=== PATIENT | female | born 1975 | race African-American/Black ===

== ENCOUNTER 2024-05-06 10:33 | Outpatient (CLI) | payer BC, SELFPAY ==
--- NOTE | ~2024-05-06 | XR_ITS ---
XR knee LT min 4V 05/06/2024 10:57 Indication: Left knee pain Procedure: 4 views left knee Comparison: No prior studies for comparison. Findings: Mild osteoarthritis. No fracture, subluxation or dislocation. No significant joint effusion . No foreign bodies. Impression: 1: Mild osteoarthritis of the left knee. Reviewed, dictated and finalized at location A. Impression: 1: Mild osteoarthritis of the left knee.
--- NOTE | ~2024-05-06 | XR_ITS ---
XR knee RT min 4V 05/06/2024 10:57 Indication: Right knee pain Procedure: 4 views right knee Comparison: No prior studies for comparison. Findings: Mild osteoarthritis of the right knee. No fracture, subluxation or dislocation. No signific ant joint effusion. No foreign bodies. Impression: 1: Mild osteoarthritis of the right knee. Reviewed, dictated and finalized at location A. Impression: 1: Mild osteoarthritis of the right knee.
== END 2024-05-06 10:34 | disposition home or self-care (01) ==
LOC: ANHIMG 10:36
PROVIDERS: Visit Provider Orthopaedic Surgery
DX: M22.41 Chondromalacia patellae, right knee (principal); M17.0 Bilateral primary osteoarthritis of knee
CPT/HCPCS: 73564

== ENCOUNTER 2025-02-17 14:22 | Outpatient (CLI) | payer BC, SELFPAY ==
--- NOTE | ~2025-02-17 | XR_ITS ---
Left Knee Technique: AP, lateral, and oblique views were obtained. Clinical History: Pain Findings: No fracture or dislocation is seen. Osseous alignment is anatomic. Joint spaces are preserv ed without degenerative or erosive change. Soft tissues are unremarkable. No joint effusion is seen. Impression: Unremarkable left knee radiographs. Reviewed, dictated and finalized at location . Impression: Unremarkable left knee radiographs.
--- OUTSIDE RECORDS SUMMARY | 2025-02-17 14:25 | XMS_ITS ---
Author Organization 1 MARQUITA colunga DPM [facility] Address [address] [address] [place] [address] Care Team Providers Care Hydroelectric Plant Technician Name Role Phone Oleg Jeong MD Primary Care Provider Unavail able Alesha Garcia Unavailable [phone] REASON FOR VISIT B/L heel pain Encounters Encounter Location Date Provider Diagnosis 3 COL Lisa Burton DPM [facility] [address] [place] [address] 09/26/2024 Alesha Garcia Plan Of Treatment No Information Progress Notes * Tamar LIMONaDOB:[birth year] (49 yo F)Acc No.[id number]:09/26/2024 Progress Notes Patient: Raine HENDERSON Provider: Elli Garcia DPM :1975 A ge:48 Y S ex:Female Date:09/26/2024 Address[address] [facility] Pcp:Oleg Jeong MD Subjective: * Chief Complaints: * 1 . B/L heel pain. * HPI: M Luis assisting with visit:: Chart Prep I rshan. HPI/Rooming: . ..... P [facility] reason for visit:: Recurrent issue: [age] y/o female RTO c/o recurrent b/l heel pain. Pt was last seen in 10/28 for b/l PF. T maggy she reports... * Medical History: Objective: * Vitals: * Examination: G eneral Examination: Constitutional / [...] within normal limits. Relatively rectus foot alignment.. Assessment: Plan: * Treatment: * Images: * Electronic signature of Kayla Garcia DPM on 02/17/2025 at 02:25 PM CDT Sign off status: Pending * Provider: Elli Garcia DPM Date: 0 09/26/2024 Generated for Brice alfred/Jeremie/Melissa on: 0 02/17/2025 02:25 PM CDT History and Physical Notes * HPI (History [...]
--- OUTSIDE RECORDS SUMMARY | 2025-02-17 14:25 | XMS_ITS | Clinical Summary ---
Author Organization [facility] Address [address] [place] [address] Care Team Providers Care Tankman Name Role Phone Oleg Jeong MD Primary Care Provider [phone] Allergies Active Allergy Reactions Criticality Noted Date Comments Shellfish Allergy Itching 09/24/2022 Medications aspirin 81 MG chewable tablet Chew 1 tablet (81 mg total) by mouth. Active CPAP MACHINEIndicati ons:LOLY (obstructive sleep apnea),Hyperten fatmata, unspecified type AutoCPAP [id number]. For use when sleeping. Lifetime use. ResMed AirSense 10 AutoSet For Her. 1 Device 09/25/19 20 Active triamcinolone 0.1 % ointment 12/13/19 21 Active vitamin D2, ergocalciferol, (DRISDOL) 1.25 mg capsule ergocalciferol (vitamin D2) 1,250 mcg (50,000 unit) capsule TAKE 1 CAPSULE EVERY WEEK BY ORAL ROUTE. Active latanoprost (XALATAN) 0.005 % ophthalmic solution Place 1 drop into both eyes nightly. 08/31/19 23 Active MYFEMBREE 40-1-0.5 MG Tab Take 1 tablet by mouth daily. 07/30/20 24 Active senna-docusate (SENOKOT-S) 8.6-50 MG tablet Take 1 tablet by mouth daily. 60 tablet 01/19/20 25 Active budesonide-form oterol (SYMBICORT) 160-4.5 MCG/ACT inhalerIndicati ons:Chronic cough Inhale 2 puffs into the lungs 2 (two) times daily. 30.6 g 3 07/01/20 25 Active albuterol sulfate HFA 108 (90 Base) MCG/ACT inhalerIndicati ons:MENENDEZ (dyspnea on exertion),Chron ic cough,Wheezing TAKE 2 PUFFS BY MOUTH EVERY 4 HOURS NEEDED FOR WHEEZING OR SHORTNESS OF BREATH 6.7 g 2 02/07/20 25 Active budesonide-form oterol (SYMBICORT) 160-4.5 MCG/ACT inhalerIndicati ons:Chronic cough Inhale 2 puffs into the lungs 2 (two) times daily. 30.6 g 3 08/04/20 23 025 Discontin ued(Reord er) albuterol sulfate HFA 108 (90 Base) MCG/ACT inhalerIndicati ons:MENENDEZ (dyspnea on exertion),Chron ic cough,Wheezing TAKE 2 PUFFS BY MOUTH EVERY 4 HOURS NEEDED FOR WHEEZING OR SHORTNESS OF BREATH 6.7 g 2 11/25/19 24 025 Discontin ued(Reord er) Active Problems Problem Noted Date Diagnosed Date MENENDEZ (dyspnea on exertion) 09/25/2019 Cough 09/25/2019 Wheezing 09/25/2019 Environmental and seasonal allergies 09/25/2019 LOLY (obstructive sleep apnea) 09/25/2019 Hypertension, unspecified type 09/25/2019 Non-seasonal allergic rhinitis, unspecified trig bill 2018 Uncomplicated asthma, unspec ified asthma severity, unspecified whether persistent ([facility]) 2018 Snoring 2018 Encounters Date Type Department Care Team Description 02/06/2025 1:40 PM CDT [facility] - [address], [address] [place] [address] Woody Caruso MD Obstructive Sleep Apnea ; Asthma 02/02/2025 Telephone [facility] - [address], [address] [place] [address] Woody Caruso MD Appointment Request 02/02/2025 [facility] [address] [address] [place] [address] Oleg Jeong MD Schedule Test 02/02/2025 Orders Only [facility], [facility] [address] [place] [address] Oleg Jeong MD 01/18/2025 5:43 PM CDT - 01/18/2025 6:41 PM CDT Hospital Encounter [facility] [address] [place] [address] Jose Lomax MD Arm Pain; Abdominal Pain; Urinary Symptoms Discharge Disposition: Home or Self Care (Routine Discharge) 01/18/2025 Travel from Last 3 Months Immunizations Immunization Administration Dates Next Due Dtp 10/22/1981,03/30/1980,04/24/1977 ,03/06/1977,01/30/1977 MMR 05/30/1991 Opv 10/22/1981,03/30/1980,04/24/1977 ,03/06/1977,01/30/1977 Td 05/30/1991 Family History Medical History Relation Comments Arthritis Mother Relation Status Comments Father Mother Alive Social History Tobacco Use Types Packs/Day Years Used Date Smoking Tobacco: Never Passive Smoke Exposure: Past Smokeless Tobacco: Never Tobacco Cessation:Counseling Given: Not Answered Alcohol Use Standard Drinks/Week Comments Yes 0 (1 standard drink = 0.6 oz pur e alcohol) rare use AUDIT-C Answer Date Recorded Frequency of Alcohol Consumption Never 11/17/2018 Average Number of Drinks Not on file 019 Frequency of Binge Drinking Not on file 11/07 PHQ-2 Answer Date Recorded Patient Health Questionnaire-2 Score 0 09/24/2022 Comments No Sex and Gender Information Value Date Recorded Sex Assigned at Not on file Legal Sex Female 7:21 PM CDT Gender Identity Not on file Sexual Orientation Not on file Last Filed Vital Signs Vital Sign Reading Time Taken Comments Blood Pressure 139/92 01/18/2025 5:37 PM CDT Pulse 91 01/18/2025 5:37 PM CDT Temperature 36.7 C (98.1 F) 01/18/2025 5:37 PM CDT Respiratory Rate 20 01/18/2025 5:37 PM CDT Oxygen Saturation 99% 01/18/2025 5:37 PM CDT Inhaled Oxygen Concentration - - Weight 93 kg (205 lb) 01/18/2025 5:37 PM CDT Height 157.5 cm (5' 2) 01/18/2025 5:37 PM CDT Body Mass Index 37.49 01/18/2025 5:37 PM CDT Plan of Treatment Health Maintenance Due Date Last Done Comments Colorectal Cancer Screening Colonoscopy (10 Years) 1975 Annual Physical 12/02/1979 DTaP, Tdap and Td Vaccines (2 - Tdap) 05/31/1991 05/30/1991, 10/22/1981, 03/30/1980, Additional history exists Hepatitis C 1994 Hepatitis B Vaccines (1 of 3 - 19+ 3-dose series) 12/02/1995 Pneumococcal Vaccine: Pediatrics (0 to 5 Years) and At-Risk Patients (6 to 49 Years) (1 of 2 - PCV) 12/02/1995 COVID-19 Vaccine ( season) 2024 PHQ-2 (Physician [place]) 08/09/2024 Cervical Cancer Screening Pap Smear (Age 30 to 64) Every 3 Years 11/13/2025 11/13/2022 Mammogram Screening 12/08/2026 12/08/2024, 05/26/2024, 11/19/2023, Additional history exists Cervical Cancer Screening Pap with HPV Testing (Age 30 to 64) Every 5 Years 11/14/2027 11/13/2022 Cervical Cancer Screening with HPV 11/14/2027 Meningococcal B Vaccine Aged Out No l onger eligible based on patient's age to complete this topic Meningococcal Vaccine Aged Out No constantino bill eligible based on patient's age to complete this topic RSV Immunizations Under 20 Months Aged Out No longer eligible based on patient's age to complete this topic Procedures Procedure Name Priority Date/Time Associated Diagnosis Comments ECG 12-LEAD STAT 01/18/2025 6:01 PM CDT POCT URINE (BACK OFFICE) STAT 01/18/2025 5:52 PM CDT URINALYSIS AUTO DIP STAT 01/18/2025 5 :52 PM CDT MG SCREENING W ROM GENIE DIGI Routine 05/30/2022 10:42 AM CDT Encounter for screening mammogram for malignant neoplasm of breast from Last 3 Months or Most Recently Relevant to Health Maintenance Results * ECG 12 lead (01/18/2025 6:01 PM CDT) 01/18/2025 6:01 PM CDT Narrative [facility] ([facility] RAD - 01/19/2025 10:[address] [facility] [address] [place] [address] Test Date: 2025-01-18 Pat Name: MARQUEZ SHELLEY Department: 41 Room: [address] [address] Gender: Female Lumber Yard Worker: FARIDA : 1975 Requested By: JOSE LOMAX Order Number: [id number] Reading MD: Nate Guajardo Measurements Intervals [place] Rate: 85 P: 52 HI: 150 QRS: 30 QRSD: 104 T: 34 QT: 389 QTc: 463 Interpretive Statements SINUS RHYTHM No previous ECG available for comparison Procedure Note Nate Guajardo MD - 01/19/2025 [facility] [address] [place] [address] Test Date: 2025-01-18 Pat Name: MARQUEZ LIMON Department: 41 Room: [address] [address] Gender: Female Lumber Yard Worker: ANF : 1975 Requested By: JOSE LOMAX Order Number: [id number] Reading WISAM Guajardo Measurements Intervals [place] Rate: 85 P: 52 HI: 150 QRS: 30 QRSD: 104 T: 34 QT: 389 QTc: 463 Interpretive Statements SINUS RHYTHM No previous ECG available for comparison us Jose Lomax MD ECG ORDERABLES Final Result [facility] * POCT urine (01/18/2025 5:52 PM CDT) URINE HCG TEST NEGATIVE Internal Control: VALID 01/18/2025 5:52 PM CDT Jose Lomax MD POINT OF CARE TEST ORDERABLE S Final Result * (ABNORMAL) URINALYSIS AUTO DIP (01/18/2025 5:52 PM CDT) SPECIMEN TYPE URINE CLEAN CATCH 01/18/2025 5:53 PM CDT [facility] COLOR (U) YELLOW 01/18/2025 6:07 PM CDT [facility] TRANSPARENCY CLEAR 01/18/2025 6:07 PM CDT [facility] SPECIFIC GRAVITY (U) >1.030(H) 1.001 - 1.030 01/18/2025 6:07 PM CDT [facility] U PH 5.5 5.0 - 9.0 01/18/2025 6:07 PM CDT [facility] LEUKOCYTES (U) NEGATIVE NEGATIVE 01/18/2025 6:07 PM CDT [facility] NITRITES NEGATIVE NEGATIVE 01/18/2025 6:07 PM CDT [facility] PROTEIN RANDOM (U) NEGATIVE <30 MG/DL 01/18/2025 6:07 PM CDT [facility] GLUCOSE (U) NEGATIVE NEGATIVE MG/DL 01/18/2025 6:07 PM CDT [facility] KETONES MG/DL (U) NEGATIVE NEGATIVE MG/DL 01/18/2025 6:07 PM CDT [facility] UROBILINOGEN 0.2(A) NEGATIVE MG/DL 01/18/2025 6:07 PM CDT [facility] BILIRUBIN (U) NEGATIVE NEGATIVE MG/DL 01/18/2025 6:07 PM CDT [facility] BLOOD (U) NEGATIVE NEGATIVE 01/18/2025 6:07 PM CDT [facility] URINE SPECIMEN OBTAINED BY CLEAN CATCH PROCEDURE / Unknown 01/18/2025 5:52 PM CDT us Jose Lomax MD URINE ORDERABLES Final Resul t [id number] [place] [address], [place] from Last 3 Months Insurance Care Teams Tankman Relationship Specialty Start Date End Date Oleg Jeong MD PCP - General 03/24/13
--- OUTSIDE RECORDS SUMMARY | 2025-02-17 14:25 | XMS_ITS | Encounter Summary ---
Author Organization [facility] Address [address] [place] [address] Care Team Providers Care Communications And Signals Supervisor Name Role Phone Oleg Jeong MD Primary Care Provider [phone] Encounter Details Date Type Department Care Team (Late st Contact Info) Description 02/03/2023 MyChart Message Enc [facility] [address] [place], [place] [address] [place], [facility] Provider Air Quality Message Social History Tobacco Use Types Packs/Day Years Used Date Smoking Tobacco: Never Passive Smoke Exposure: Never Smokeless Tobacco: Never Alcohol Use Standard Drinks/Week Comments No 0 (1 standard drink = 0.6 oz pur e alcohol) AUDIT-C Answer Date Recorded Frequency of Alcohol [...] on file Sexual Orientation Not on file documented as of this encounter Plan of Treatment Not on file documented as of this encounter Visit Diagnoses Not on filedocumented in this encounter Additional Health Concerns Assessment Noted Time PHQ-9 Depression Total Score: 0 01/29/20 21 8:47 AM CDT documented as of this encounter Care Teams Communications And Signals Supervisor Relationship Specialty Start Date End Date Oleg Jeong MD PCP - General 03/24/13 documented as of this encounter
--- OUTSIDE RECORDS SUMMARY | 2025-02-17 14:26 | XMS_ITS | Referral Summary ---
Author Organization [facility] Address [address] [place] [phone] Care Team Providers Care Lining Baster Name Role Phone Oleg Jeong MD Primary Care Provider [phone] Encounters Date Type Department Care Team Description 02/02/2025 12:35 AM CDT - 02/02/2025 4:12 AM CDT Emergency [address] [address] Wally López DO Chest wall pain (Primary Dx); Shortness of breath; Hypertension, unspecified type Discharge Disposition: Discharge to home or self care 01/29/2025 3:30 PM CDT Ancillary Procedure [facility] Obstetrical Gynecology [address] [place] [phone] Abnormal uterine bleeding 01/29/2025 4:00 PM CDT Office Visit [facility] Obstetrical Gynecology [address] [place] [phone] June Bauman MD Low bone mass (Primary Dx); Abnormal uterine bleeding; Fibroid 01/25/2025 Results Follow-Up [facility] Obstetrical Gynecology [address] [place] [phone] June Bauman MD Stool DNA - Cologuard 01/24/2025 Telephone [facility] Primary Care at [address] [place] [phone] [place] 12/08/2024 2:30 PM CDT - 12/08/2024 11:59 PM CDT Hospital Encounter [facility] Bld[facility] [address] [place] [address] Category 3 mammography result with short follow-up interval suggested for probably benign finding Discharge Disposition: Discharge to home or self care from Last 3 Months Allergies Active Allergy Reactions Criticality Noted Date Comments Shellfish Containing Products Itching Low 2020 Medications albuterol HFA (PROVENTIL HFA,VENTOLIN HFA,PROAIR HFA) 90 mcg/actuation inhaler TAKE 2 PUFFS BY MOUTH EVERY 4 HOURS NEEDED FOR WHEEZING OR SHORTNESS OF BREATH 11/26/19 21 Active aspirin 81 mg chewable tablet Take 1 tablet (81 mg total) by mouth Active budesonide-form oteroL (SYMBICORT) 160-4.5 mcg/actuation inhaler Inhale 2 puffs 2 (two) times a day 01/29/20 21 Active cyclobenzaprine (FLEXERIL) 5 mg tablet cyclobenzaprine 5 mg tablet TAKE 1 TABLET BY MOUTH TWICE A DAY NEEDED Active ergocalciferol (VITAMIN D) 50,000 unit capsule TAKE 1 CAPSULE EVERY WEEK BY ORAL ROUTE. 11/02/19 23 Active ibuprofen (ADVIL,MOTRIN) 800 mg tablet ibuprofen 800 mg tablet TAKE 1 TABLET BY MOUTH 3 TIMES A DAY NEEDED WITH FOOD Activ e latanoprost (XALATAN) 0.005 % ophthalmic solution 1 drop nightly 10/14/19 23 Active triamcinolone (KENALOG) 0.1 % cream APPLY TO AREAS TWICE A DAY 02/28/20 23 Active brimonidine (ALPHAGAN) 0.2 % ophthalmic solution Active mirabegron ER (MYRBETRIQ) 25 mg tablet extended release 24 hr Take 1 tablet (25 mg total) by mouth daily 05/08/20 24 Active oxyBUTYnin XL (DITROPAN-XL) 10 mg 24 hr tablet Take 1 tablet (10 mg total) by mouth daily Active relugolix-estra diol-norethindr (Myfembree) 40-1-0.5 mg tabletIndicatio ns:Fibroid,Abno rmal uterine bleeding,Anemia , unspecified type,Uterine leiomyoma, unspecified location,Menorr hagia with regular cycle Take 1 tablet by mouth daily 84 tablet 1 07/30/20 24 Active sulfamethoxazol e-trimethoprim (BACTRIM DS) 800-160 mg per tablet Take 1 tablet by mouth 2 (two) times a day 01/27/20 25 Active ciprofloxacin (CIPRO) 500 mg tablet Take 1 tablet (500 mg total) by mouth every 12 (twelve) hours 01/05/20 25 Active hydrocortisone 2.5 % cream Apply topically 2 (two) times a day 20 g 2 01/30/20 25 Active amLODIPine (NORVASC) 5 mg tablet Take 1 tablet (5 mg total) by mouth daily 30 tablet 02/03/20 25 025 Active Active Problems Problem Noted Date Diagnosed Date Anxiety 11/13/2022 Obesity 11/13/2022 Abnormal uterine bleeding 12/15/2020 LOLY (obstructive sleep apnea) 09/25/2019 Hypertension 09/25/2019 Uncomplicated asthma 2018 Snoring 2018 Non-seasonal allergic rhinitis 2018 Migraine 08/28/2016 Immunizations Immunization Administration Dates Next Due DTP 10/22/1981,03/30/1980,04/24/1977 ,03/06/1977,01/30/1977 MMR 05/30/1991 OPV 10/22/1981,03/30/1980,04/24/1977 ,03/06/1977,01/30/1977 OPV, Unspecified 10/22/1981,03/30/1980, 7,03/06/1977,01/30/1977 Td, adsorbed 05/30/1991 Social History Tobacco Use Types Packs/Day Years Used Date Smoking Tobacco: Never Cigarettes Smokeless Tobacco: Never Tobacco Cessation:Counseling Given: Not Answered Comments No Sex and Gender Information Value Date Recorded Sex Assigned at Not on file Legal Sex Female 2:21 PM CDT Gender Identity Not on file Sexual Orientation Not on file Last Filed Vital Signs Vital Sign Reading Time Taken Comments Blood Pressure 152/99 02/02/2025 3:00 AM CDT Pulse 85 02/02/2025 3:30 AM CDT Temperature 36.9 C (98.4 F) 02/01/2025 11:08 PM CDT Respiratory Rate 20 02/02/2025 1:30 AM CDT Oxygen Saturation 100% 02/02/2025 3:30 AM CDT Inhaled Oxygen Concentration - - Weight 93 kg (205 lb) 02/01/2025 11:08 PM CDT Height 157.5 cm (5' 2) 02/01/2025 11:08 PM CDT Body Mass Index 37.49 02/01/2025 11:08 PM CDT Plan of Treatment Not on file Medical Devices Implanted Type Area Laundry Bag Punch Operator Device Identifier Shelf Expiration Date Model / Serial / Lot Motista [facility] Eviva 13cm Identifier Biopsy Site [id number] - [id number] Implanted:Qty: 1 on 06/30/2023 at [facility] Left: Breast [employer] [id number] 02/03/2024 [facility] / / [id number] Procedures Procedure Name Priority Date/Time Associated Diagnosis Comments CT CHEST PE W CONTRAST ED Urgent/IP Urgent 02/02/2025 2:11 AM CDT POCT HCG, URINE Routine 02/02/2025 1:40 AM CDT TROPONIN T HIGH-SENSITIVITY 2-HOUR Timed 02/02/2025 1:21 AM CDT XR CHEST 1 VIEW ED 02/01/2025 11:19 PM CDT EGFR STAT 02/01/2025 11:17 PM CDT MAGNESIUM STAT 02/01/2025 11:17 PM CDT DIFFERENTIAL AUTO STAT 02/01/2025 11: 17 PM CDT TROPONIN T HIGH-SENSITIVITY SERIES (BASELINE, 2HR, 4HR, 6HR) STAT 02/01/2025 11:17 PM CDT COMPREHENSIVE METABOLIC PANEL STAT 02/01/2025 11:17 PM CDT CBC WITH AUTO DIFFERENTIAL STAT 02/01/2025 11:17 PM CDT ECG 12-LEAD STAT 02/01/2025 11:09 PM CDT US PELVIS W ENDOVAGINAL Schedule Routine, Read Routine (OP Routine) 01/29/2025 3:26 PM CDT Abnormal uterine bleeding STOOL DNA COLOGUARD Routine 01/20/2025 10:00 AM CDT Well woman exam DIAGNOSTIC MAMMOGRAM LEFT W JENS Schedule Routine, Read Routine (OP Routine) 12/08/2024 2:54 PM CDT Category 3 mammography result with short follow-up interval suggested for probably benign finding HEPATITIS C ANTIBODY Routine 08/10/2024 12:40 PM CRIME LAB TECHNICIAN Well woman exam DIAGNOSTIC MAMMOGRAM BILATERAL W JENS Schedule Routine, Read Routine (OP Routine) 05/26/2024 3:12 PM CDT Follow-up examination of abnormal mammogram HIGH RISK HPV DNA DETECTION WITH GENOTYPING Routine 04/13/2023 12:34 PM CDT Well woman exam from Last 3 Months or Most Recently Relevant to Health Maintenance Results * CT Chest PE (CTA) W Contrast (02/02/2025 2:11 AM CDT) Anatomical Region Laterality Modality Body N/A Computed Tomogra phy 02/02/2025 2:24 AM CDT Narrative 02/02/2025 2:33 AM CDT EXAM DESCRIPTION: CT CHEST PE (CTA) W CONTRAST REASON FOR STUDY: Pulmonary embolism (PE) suspected, high prob Patient presents to ED from home for sudden sharp left sided chest pain 6/10, left calf pain 8/10 which started about 30 mins ago. Pt was doing nothing when she started having chest pain. Pt also reports that her stomach is bloated and full. Pt took 2 pills 81mg of ASA CHIEF LIBRARIAN BRANCH OR DEPARTMENT. Pt AAOx4, not in distress, ambulatory. TECHNIQUE: CT angiogram of the chest performed with intravenous contrast using helical scanning technique with dynamic intravenous contrast injection. Reconstructed coronal and sagittal MPR images reviewed. All images stored on PACS. 3D MIP images rendered on scanning unit and reviewed at time of interpretation. Automated exposure control was used as a dose optimization technique for this examination. CONTRAST TYPE/DOSE: 80mL of IOVERSOL 350 MG IODINE/ML INTRAVENOUS SYRINGE injected via intravenous COMPARISON: Comparison is made to chest x-ray of October 04, 2024. REFERENCE: Per ACR white paper recommendations, unless otherwise specified no follow-up imaging is recommended for incidental renal and adrenal lesions per consensus recommendations based on imaging criteria. Further lab evaluation could be pursued based on clinical findings. FINDINGS: NECK BASE: There is enlargement of the thyroid gland with multiple nodules, the largest measuring up to 2.7 cm in diameter. The neck base is otherwise unremarkable. HARDWARE/LINES/TUBES: None. LYMPH NODES: No axillary, mediastinal or hilar lymphadenopathy is seen by CT size criteria. MEDIASTINUM/KOBI: No masses seen. The aorta and great vessels appear normal. There is no significant coronary artery calcification. The contrast bolus is adequate . There is streak artifact related to dense contrast in the SVC, somewhat limiting evaluation of the adjacent right upper lobe vasculature. The pulmonary arteries are well evaluated to the subsegmental level. There are no filling defects seen in the pulmonary arteries on the axial or coronal images to suggest pulmonary embolism. There is no evidence of left intraventricular septal bowing. There is no significant reflux of contrast into the IVC. Heart size is normal. There is no significant pericardial effusion. PLEURA: No effusion. No pneumothorax. LUNGS: There is mild dependent atelectasis through out the lungs bilaterally. The central airways are normal. CHEST WALL/BREAST: In the retroareolar region of the left breast there is a 3.7 x 3.1 x 4.4 cm lobulated lesion seen to be a minimally complex cyst on previous diagnostic breast evaluation, not significantly changed. MUSCULOSKELETAL: No acute abnormality. UPPER ABDOMEN: There are sequelae of cholecystectomy. The remaining visualized upper abdominal structures are unremarkable. 80 OTHER: No other significant abnormality. IMPRESSION: 1. No CTA evidence of pulmonary embolism. 2. Mild dependent atelectasis throughout the lungs bilaterally. 3. Enlargement of the thyroid gland with multiple nodules, the largest measuring up to 2.7 cm in diameter. Recommend dedicated thyroid ultrasound for further evaluation. 4. Stable 3.7 x 3.1 x 4.4 cm lobulated lesion in the retroareolar region of the left breast seen to be a minimally complex cyst on previous diagnostic breast evaluation, not significantly changed. Patient is due for follow-up screening mammography in May 2025. 5. Sequelae of cholecystectomy. THIS IS AN ELECTRONICALLY VERIFIED FINAL REPORT 02/02/2025 2:33 AM - Electronically signed by Pati Delgado M.D. SN T: Report ID: [id number] Reading Location: [id number] Procedure Note Pati Delgado MD - 02/02/2025 EXAM DESCRIPTION: CT CHEST PE (CTA) W CONTRAST REASON FOR STUDY: Pulmonary embolism (PE) suspected, high prob Patient presents to ED from home for sudden sharp left sided chest pain 6/10, left calf pain 8/10 which started about 30 mins ago. Pt was doing nothing when she started having chest pain. Pt also reports that herstomach is bloated and full. Pt took 2 pills 81mg of ASA [employer]IEF LIBRARIAN BRANCH OR DEPARTMENT. Pt AAOx4, notin distress, ambulatory. TECHNIQUE: CT angiogram of the chest performed with intravenous contrastusing helical scanning technique with dynamic intravenous contrast injection. Reconstructed coronal and sagittal MPR images reviewed. All images storedon PACS. 3D MIP images rendered on scanning unit and reviewed at time of interpretation. Automated exposure control was used as a doseoptimization technique for this examination. CONTRAST TYPE/DOSE: 80mL of IOVERSOL 350 MG IODINE/ML INTRAVENOUSSYRINGE injected via intravenous COMPARISON: Comparison is made to chest x-ray of October 04, 2024. REFERENCE: Per ACR white paper recommendations, unless otherwise specifiedno follow-up imaging is recommended for incidental renal and adrenal lesionsper consensus recommendations based on imaging criteria. Further labevaluation could be pursued based on clinical findings. FINDINGS: NECK BASE: There is enlargement of the thyroid gland withmultiple nodules, the largest measuring up to 2.7 cm in diameter. The neck baseis otherwise unremarkable. HARDWARE/LINES/TUBES: None. LYMPH NODES: No axillary, mediastinal or hilar lymphadenopathy is seen byCT size criteria. MEDIASTINUM/KOBI: No masses seen. The aorta and great vessels appear normal. There is no significant coronary artery calcification. Thecontrast bolus is adequate . There is streak artifact related to dense contrastin the SVC, somewhat limiting evaluation of the adjacent right upper lobe vasculature. The pulmonary arteries are well evaluated to thesubsegmental level. There are no filling defects seen in the pulmonary arteries on the axial or coronal images to suggest pulmonary embolism. There is noevidence of left intraventricular septal bowing. There is no significant refluxof contrast into the IVC. Heart size is normal. There is no significant pericardial effusion. PLEURA: No effusion. No pneumothorax. LUNGS: There is mild dependent atelectasis through out the lungsbilaterally. The central airways are normal. CHEST WALL/BREAST: In the retroareolar region of the left breast there jennifer 3.7 x 3.1 x 4.4 cm lobulated lesion seen to be a minimally complex cyst on previous diagnostic breast evaluation, not significantly changed. MUSCULOSKELETAL: No acute abnormality. UPPER ABDOMEN: There are sequelae of cholecystectomy. The remaining visualized upper abdominal structures are unremarkable. 80 OTHER: No other significant abnormality. IMPRESSION: 1. No CTA evidence of pulmonary embolism. 2. Mild dependent atelectasis throughout the lungs bilaterally. 3. Enlargement of the thyroid gland with multiple nodules, the largest measuring up to 2.7 cm in diameter. Recommend dedicated thyroidultrasound for further evaluation. 4. Stable 3.7 x 3.1 x 4.4 cm lobulated lesion in the retroareolar regionof the left breast seen to be a minimally complex cyst on previous diagnostic breast evaluation, not significantly changed. Patient is due forfollow-up screening mammography in May 2025. 5. Sequelae of cholecystectomy. THIS IS AN ELECTRONICALLY VERIFIED FINAL REPORT 02/02/2025 2:33 AM - Electronically signed by Pati Delgado M.D. SN T: Report ID: [id number] Reading Location: [place] [address] Wally López DO IMG CT PROCEDURES Final Res ult * POCT hCG, urine (02/02/2025 1:40 AM CDT) HCG, ur, POC Negative Negative Lot Number [id number] QC Backgroud Clear Acceptable QC Control Line Acceptable Urine 02/02/2025 1:40 AM CDT Wally López DO POINT OF CARE TEST ORDERABL ES Final Result * Troponin T high-sensitivity 2-hour (02/02/2025 1:21 AM CDT) Trop T hs <6 <=14 ng/L Comment: Interpretive Data For further hscTnT resources including the diagnostic algorithm and an aid in interpretation, copy and paste this link: [email or web address].testcatalog.org/show/[email or web address] Current Interpretive Data last revised 2020. Trop T hs delta 0 ng/L CHARMAINE Trop T hs interp Insignificant CHARMAINE Blood 02/02/2025 1:21 AM CDT 02/02/2025 1:27 AM CDT Wally Angel López DO LAB BLOOD ORDERABLES Final Result [facility] [address] [facility] Department [place] [address] * XR Chest 1 Vw Portable (If patient hemodynamically UNstable or UNable to ambulate) (02/01/2025 11:19 PM CDT) Anatomical Region Laterality Modality Body, Chest N/A Computed Radiogr aphy 02/01/2025 11:4 7 PM CDT Narrative 02/01/2025 11:47 PM CDT EXAM DESCRIPTION: XR CHEST 1 VIEW REASON FOR STUDY: chest pain C/o sudden sharp left sided chest pain 6/10, left calf pain 8/10 which started about 30 mins ago. Pt was doing nothing when she started having chest pain. Pt also reports that her stomach is bloated and full. TECHNIQUE: Single radiographic view of the chest. COMPARISON: Chest x-ray of July 11, 2021. FINDINGS: LUNGS/PLEURA: No focal consolidation or pneumothorax. No pleural effusion. There is no significant change as compared to previous study. HEART/MEDIASTINUM: Cardiac silhouette is normal. Remaining mediastinal silhouettes are unremarkable. HARDWARE/LINES/TUBES: None. BONES: No acute findings. IMPRESSION: No acute cardiopulmonary abnormality. THIS IS AN ELECTRONICALLY VERIFIED FINAL REPORT 02/01/2025 11:47 PM - Electronically signed by Pati Delgado M.D. SN T: Report ID: [id number] Reading Location: [id number] Procedure Note Pati Delgado MD - 02/01/2025 EXAM DESCRIPTION: XR CHEST 1 VIEW REASON FOR STUDY: chest pain C/o sudden sharp left sided chest pain 6/10, left calf pain 8/10 whichstarted about 30 mins ago. Pt was doing nothing when she started having chestpain. Pt also reports that her stomach is bloated and full. TECHNIQUE: Single radiographic view of the chest. COMPARISON: Chest x-ray of July 11, 2021. FINDINGS: LUNGS/PLEURA: No focal consolidation or pneumothorax. Nopleural effusion. There is no significant change as compared to previous study. HEART/MEDIASTINUM: Cardiac silhouette is normal. Remaining mediastinal silhouettes are unremarkable. HARDWARE/LINES/TUBES: None. BONES: No acute findings. IMPRESSION: No acute cardiopulmonary abnormality. THIS IS AN ELECTRONICALLY VERIFIED FINAL REPORT 02/01/2025 11:47 PM - Electronically signed by Pati Delgado M.D. SN T: Report ID: [id number] Reading Location: [id number] Wally López DO IMG XR PROCEDURES Final Res ult * Troponin T high-sensitivity series (baseline, 2hr, 4hr, 6hr) (02/01/2025 11:17 PM CDT) Trop T hs <6 <=14 ng/L Comment: Interpretive Data For further hscTnT resources including the diagnostic algorithm and an aid in interpretation, copy and paste this link: [email or web address].testcatalog.org/show/[email or web address] Current Interpretive Data last revised 2020. Blood 02/01/2025 11:1 7 PM CDT 02/01/2025 11:19 PM CDT [facility] Final Result Performing Organization Address [facility] de Phone Number CHARMAINE [address] [address] * eGFR (02/01/2025 11:17 PM CDT) Pathologist [facility] eGFR 83 >=60 mL/min/1. 73 m2 Comment: Interpretive Data Reference Interval Normal >/= 90 mL/min/1.73m2 Mildly decreased* 60 - 89 mL/min/1.73m2 Mildly to moderately decreased 45 - 59 mL/min/1.73m2 Moderately to severely decreased 30 - 44 mL/min/1.73m2 Severely decreased 15 - 29 mL/min/1.73m2 Kidney Failure < 15 mL/min/1.73m2 *Relative to young adult level Estimated glomerular filtration rate is determined by the 2020 CKD-EPI equation recommended by the National Kidney Foundation (A Unifying Approach to GFR Estimation: Recommendations of the NKF-ASK Task Force on Reassessing the Inclusion of Race in Diagnosing Kidney Disease, JASN 2020). The CKD-EPI equation should not be used for patients with unstable renal function and has not been validated in children and those over 70. Current interpretive data was last reviewed 2021. Blood 02/01/2025 11:1 7 PM CDT 02/01/2025 11:19 PM CDT Wally Angel Jaimehu LAB BLOOD ORDERABLES Final Result Performing Organization Address City/[facility]/ZIP Co de Phone Number CHARMAINE [address] [facility] [place] [address] * Differential, auto (02/01/2025 11:17 PM CDT) Pathologist [facility] Neutrophil abs 3.34 1.50 - 6.50 K/cumm Imm gran abs 0.03 0.00 - 0.10 K/cumm [facility] Lymphocyte abs 1.95 0.80 - 3.30 K/cumm [facility] Monocyte abs 0.67 0.20 - 0.80 K/cumm [facility] Eosinophil abs 0.13 0.00 - 0.50 K/cumm [facility] Basophil abs 0.06 0.00 - 0.10 K/cumm [facility] Neutrophil pct 54.0 % [facility] Comment: Interpretive Data Percent cell count reference ranges are not reported, since discordance with absolute values may lead to misinterpretation of CBC data. Current Interpretive Data was last revised on 2017. Imm gran pct 0.5 % [facility] Comment: Interpretive Data Percent cell count reference ranges are not reported, since discordance with absolute values may lead to misinterpretation of CBC data. Current Interpretive Data was last revised on 2017. Lymphocyte pct 31.6 % [facility] Comment: Interpretive Data Percent cell count reference ranges are not reported, since discordance with absolute values may lead to misinterpretation of CBC data. Current Interpretive Data was last revised on 2017. Monocyte pct 10.8 % [facility] Comment: Interpretive Data Percent cell count reference ranges are not reported, since discordance with absolute values may lead to misinterpretation of CBC data. Current Interpretive Data was last revised on 2017. Eosinophil pct 2.1 % [facility] Comment: Interpretive Data Percent cell count reference ranges are not reported, since discordance with absolute values may lead to misinterpretation of CBC data. Current Interpretive Data was last revised on 2017. Basophil pct 1.0 % [facility] Comment: Interpretive Data Percent cell count reference ranges are not reported, since discordance with absolute values may lead to misinterpretation of CBC data. Current Interpretive Data was last revised on 2017. Blood 02/01/2025 11:1 7 PM CDT 02/01/2025 11:19 PM CDT Wally López DO LAB BLOOD ORDERABLES Final Result CHARMAINE [address] [facility] Department [place] [address] * (ABNORMAL) CBC with auto differential (02/01/2025 11:17 PM CDT) [facility] WBC 6.18 3.80 - 9.90 K/cumm Hgb 13.7 11.9 - 15.5 g/dL [facility] Hct 41.0 35.6 - 45.5 % [facility] Plt 375 150 - 400 K/cumm [facility] MPV 8.7(L) 9.1 - 12.3 fL [facility] RBC 4.35 3.90 - 5.20 M/cumm [facility] MCV 94.3 81.3 - 96.4 fL [facility] MCH 31.5 27.1 - 33.3 pg [facility] MCHC 33.4 32.3 - 35.7 g/dL [facility] RDW CV 12.4 11.1 - 14.9 % [facility] RDW SD 42.8 35.7 - 48.1 fL [facility] NRBC abs 0.00 0.00 - 0.01 K/cumm [facility] Blood Venous blood specimen / Unknown 02/01/2025 11:17 PM CDT 02/01/2025 11:19 PM CDT Wally López DO LAB BLOOD ORDERABLES Final Result Performing Organization Address City/[facility]/ZIP Co de Phone Number [address] [place] [address] * (ABNORMAL) Magnesium (02/01/2025 11:17 PM CDT) [facility] Magnesium 2.6(H) 1.4 - 2.5 mg/dL Blood 02/01/2025 11:1 7 PM CDT 02/01/2025 11:19 PM CDT Kimmy Ortiz MD LAB BLOOD ORDERABLES Final Resul t [address] [facility] [place] [address] * (ABNORMAL) Comprehensive metabolic panel (02/01/2025 11:17 PM CDT) [facility] Sodium 140 135 - 145 mmol/L Potassium, pl 3.8 3.3 - 4.9 mmol/L [facility] Chloride 104 97 - 110 mmol/L [facility] CO2 21(L) 22 - 32 mmol/L [facility] Anion gap 15 2 - 15 mmol/L [facility] BUN 13 6 - 25 mg/dL [facility] Creatinine 0.86 0.60 - 1.10 mg/dL [facility] Glucose 77 70 - 199 mg/dL [facility] Comment: Interpretive Data Fasting glucose >/= 126 mg/dl is diagnostic for diabetes. Fasting is defined as no caloric intake for at least 8 hours. Fasting glucose between 100 mg/dl to 125 mg/dl is diagnostic of prediabetes. In a patient with classic symptoms of hyperglycemia or hyperglycemic crisis, a random glucose >/= 200 mg/dl is diagnostic for diabetes. In the absence of unequivocal hyperglycemia, results should be confirmed by repeat testing. The classification and Diagnosis of Diabetes Diabetes Care 2021; 46: S19-S40. Current interpretive data was last revised 2022. Calcium 8.8 8.5 - 10.3 mg/dL [facility] Bilirubin, total 0.3 0.1 - 1.2 mg/dL [facility] Protein, pl 6.7 6.5 - 8.5 g/dL [facility] Albumin 3.9 3.5 - 5.0 g/dL [facility] Alk phos 61 40 - 130 Units/L [facility] ALT 25 7 - 45 Units/L [facility] AST 35 10 - 45 Units/L [facility] Blood 02/01/2025 11:1 7 PM CDT 02/01/2025 11:19 PM CDT Wally López DO LAB BLOOD ORDERABLES Final Result [facility] [address] [facility] Department [place] [address] * ECG 12 lead (02/01/2025 11:09 PM CDT) Pathologist [facility] Ventricular Rate EKG/Min 91 BPM [facility] Atrial Rate [address] [facility] PA-Interval (MSEC) [address] [facility] QRS-Interval (MSEC) 100 ms [facility] QT-Interval (MSEC) 398 ms [facility] QTc 489 ms [facility] P [place] 54 degrees [facility] R [place] 38 degrees [facility] T [place] 44 degrees [facility] Diagnosis Normal sinus rhythm Prolonged QT Abnormal ECG When compared with ECG of 11-JUL-2021 21:32, No significant change was found Confirmed by ALICE COLLADO M.D. ([id number]) on 02/03/2025 2:52:15 AM [facility] 02/01/2025 11:0 9 PM CDT 02/03/2025 2:52 AM CDT Wally López DO ECG ORDERABLES Final Resul t [facility] * US Pelvis W Endovaginal (01/29/2025 3:26 PM CDT) Endometrial Thickness 3.8 mm&millime ters [facility] Anatomical Region Laterality Modality Pelvis N/A Ultrasound 01/29/2025 3:28 PM CDT Impressions 02/08/2025 5:37 PM CDT The uterus is enlarged. Thin and homogenous endometrium. Large myoma persists, now measures 6.1 x 5.3 x 5.9 cm. Normal sized, and morphologically normal appearing ovaries were found in each adnexa. There was no evidence of free fluid in the pelvis or other pelvic masses. Narrative Procedure Note June Bauman MD - 02/08/2025 IMPRESSION: The uterus is enlarged. Thin and homogenous endometrium. Large myoma persists, now measures 6.1 x 5.3 x 5.9 cm. Normal sized, and morphologically normal appearing ovaries were found ineach adnexa. There was no evidence of free fluid in the pelvis or other pelvic masses. June Bauman MD G US PROCEDURES Final Re sult * Stool DNA - Cologuard (01/20/2025 10:00 AM CDT) Pathologist [facility] Stool DNA - Cologuard Negative Negative [email or web address] (CLIA #:[id number]) Comment: The Cologuard (TM) test was performed on this specimen. NEGATIVE TEST RESULT. A negative Cologuard result indicates a low likelihood that a colorectal cancer (CRC) or advanced adenoma (adenomatous polyps with more advanced pre-malignant features) is present. The chance that a person with a negative Cologuard test has a colorectal cancer is less than 1 in 1500 (negative predictive value >99.9%) or has an advanced adenoma is less than 5.3% (negative predictive value 94.7%). These data are based on a prospective cross-sectional study of 10,000 individuals at average risk for colorectal cancer who were screened with both Cologuard and colonoscopy. (Sammie Durán al, N Engl J Med 2014;370(14):1286- 1297) The normal value (reference range) for this assay is negative. COLOGUARD RE-SCREENING RECOMMENDATION: Periodic colorectal cancer screening is an important part of preventive healthcare for asymptomatic individuals at average risk for colorectal cancer. Following a negative Cologuard result, the [place] Cancer Society and U.S. Multi-Society Task Force screening guidelines recommend a Cologuard re-screening interval of 3 years. References: [place] [employer] Guideline for Colorectal Cancer Screening: https://www.cancer.org/cancer/awavx-shfumv-yufrss/xrxzivnif-siwjhujkf-ymfosra/ac s-rec ommendations.html.; Phuc DK, Dave CR, Yoselin RodK, Colorectal Cancer Screening: Recommendations for Physicians and Patients from the U.S. Multi-Society Task Force on Colorectal Cancer Screening , Am J Gastroenterology 2017; 112:1570-8982. TEST DESCRIPTION: Composite algorithmic analysis of stool DNA-biomarkers with hemoglobin immunoassay. Quantitative values of individual biomarkers are not reportable and are not associated with individual biomarker result reference ranges. Cologuard is intended for colorectal cancer screening of adults of either sex, 45 years or older, who are at average-risk for colorectal cancer (CRC). Cologuard has been approved for use by the U.S. FDA. The performance of Cologuard was established in a cross sectional study of average-risk adults aged 50-84. Cologuard performance in patients ages 45 to 49 years was estimated by sub-group analysis of near-age groups. Colonoscopies performed for a positive result may find as the most clinically significant lesion: colorectal cancer [4.0%], advanced adenoma (including sessile serrated polyps greater than or equal to 1cm diameter) [20%] or non- advanced adenoma [31%]; or no colorectal neoplasia [45%]. These estimates are derived from a prospective cross-sectional screening study of 10,000 individuals at average risk for colorectal cancer who were screened with both Cologuard and colonoscopy. (Sammie Durán al, N Engl J Med 2014;370(14):9126-9787.) Cologuard may produce a false negative or false positive result (no colorectal cancer or precancerous polyp present at colonoscopy follow up). A negative Cologuard test result does not guarantee the absence of CRC or advanced adenoma (pre-cancer). The current Cologuard screening interval is every 3 years. ([place] [employer] and U.S. Multi-Society Task Force). Cologuard performance data in a 10,000 patient pivotal study using colonoscopy as the reference method can be accessed at the following location: www.[employer].com/results. Additional description of the Cologuard test process, warnings and precautions can be found at www.cologuard.com. Stool 01/20/2025 10:0 0 AM CDT 01/21/2025 9:35 PM CDT June Bauman MD LAB BODY FLUIDS AND STOOLS ORDERABLES Final Result [email or web address] (CLIA #:[id number]) [address] [place] [address] * Diagnostic Mammogram Left W Jens (12/08/2024 2:54 PM CDT) Anatomical Region Laterality Modality Breast Left Mammography 12/08/2024 3:0 4 PM CDT Impressions 12/08/2024 3:04 PM CDT No imaging findings to suggest malignancy are seen. The patient may return to screening mammography as per ACR guidelines. OVERALL FINAL ASSESSMENT: BI-RADS 2 - Benign findings. Electronically signed by: Zuri Long M.D. Narrative 12/08/2024 3:04 PM CDT EXAMINATION: DIGITAL DIAGNOSTIC LEFT MAMMOGRAM INCLUDING CAD AND DIGITAL BREAST TOMOSYNTHESIS HISTORY: Follow-up COMPARISON: Studies dating back to April 15, 2023 TECHNIQUE: Digital mammographic views of the left breast(s) were performed, including digital breast tomosynthesis (DBT). Computer aided detection (CAD) was utilized. BREAST PARENCHYMAL COMPOSITION: There is scattered fibroglandular tissue. MAMMOGRAM FINDINGS: Again seen is a lobulated mass versus multiple adjacent masses, previously evaluated and found to be (a) cyst(s), in the retroareolar region. No suspicious masses are seen. Calcifications in the superior left breast have actually decreased. There are calcifications which are known to layer dependently in the largest cyst/locule in the retroareolar region. No suspicious calcifications are seen. There is a biopsy marker present. There is no unexplained architectural distortion. There is no skin thickening. No axillary adenopathy is seen mammographically. us Reva Mckeon MD PhD IMG MAMMO PROCEDURES Final Result * Hepatitis C antibody Blood (08/10/2024 12:40 PM CRIME LAB TECHNICIAN) Hep C Ab NON-REACTI VE NON-REACT [place] [facility] Comment: HCV antibody was non-reactive. There is no laboratory evidence of HCV infection. In most cases, no further action is required. However, if recent HCV exposure is suspected, a test for HCV RNA (test code 31466) is suggested. For additional information please refer to http://education.[employer]imber.com/faq/PHG37p3 (This link is being provided for informational/ educational purposes only.) Blood 08/10/2024 12:4 0 PM CRIME LAB TECHNICIAN 08/10/2024 12:43 PM CRIME LAB TECHNICIAN Narrative [facility] - 08/11/2024 9:07 AM CRIME LAB TECHNICIAN FASTING:UNKNOWN FASTING: UNKNOWN June Bauman MD LAB MICROBIOLOGY - GENERAL ORDERABLES Final Result [facility] [id number] [id number] * Diagnostic Mammogram Bilateral W Jens (05/26/2024 3:12 PM CDT) Anatomical Region Laterality Modality Breast Bilateral Mammography 05/26/2024 4:59 PM CDT Narrative 05/26/2024 5:05 PM CDT EXAM DESCRIPTION: DIAGNOSTIC MAMMOGRAM BILATERAL W JENS REASON FOR STUDY: Followup TECHNIQUE: 2D digital mammographic views as well as 3D digital tomosynthesis in the CC and MLO projections were obtained. COMPARISON: November 18. June 30 2023. May 17, 2023. April 15, 2023. FINDINGS: DENSITY: The breasts contain scattered fibroglandular elements. MASS: There is evidence of the known breast cysts. No suspicious masses are seen. ARCHITECTURE: No alteration of normal morphology. No skin thickening. No edema. OTHER: The calcifications on the left appear unchanged. IMPRESSION: Stable appearance of the breasts mammographically. An additional six-month follow-up on the left is recommended. BIRADS: 3-probably benign findings THIS IS AN ELECTRONICALLY VERIFIED FINAL REPORT 05/26/2024 5:05 PM - Electronically signed by Zuri Long M.D. LD: LD Report ID: [id number] Reading [facility] Reva Mckeon MD PhD IMG MAMMO PROCEDURES Final Result * High Risk HPV DNA Detection with Genotyping (Molecular component) (04/13/2023 12:34 PM CDT) HPV HR 16 Not Detected Not Detected [facility] Comment:Testing performed by : [facility], [address] [place]., [address] HPV HR 18 Not Detected Not Detected [facility] FORMAN Comment:Testing performed by : [facility], [address] [place]., [address] HPV HR Non 16/18 Not Detected Not Detected [facility] Comment: Interpretive Data Nucleic acid amplification for detection of high-risk Human Papilloma virus (HPV) is performed by the Jessica Sloan 6800 HPV test. This assay specifically detects HPV-16 and HPV-18 genotypes. The following HPV genotypes are detected as high-risk HPV: HPV-31, 33, 35, ,39, 45, 51, 52, 56, 58, 59, 66, and 68. This assay has been approved by the [place] Food and Drug Administration for detection of HPV in cervical specimens collected by a physician using an endocervical brush/spatula or cervical broom and placed in the ThinPrep Pap Test PreservCyt collection containers. The performance characteristics of this test have been verified by the [facility] Molecular Infectious Disease laboratory. Correlate with separately reported cytology results, as applicable. Interpretive data last revised 23 Testing performed by: [facility], [address] [place]., [address] Endocervical 04/13/2023 12:3 4 PM CDT 04/15/2023 7:43 PM CDT Narrative [facility]MAINE - 04/16/2023 2:30 AM CDT Clinical history and diagnosis->routine Number of vials->1 Testing type->Screening Last menstrual period (date if known)->03/29/2023 June Bauman MD LAB BODY FLUIDS AND STOOLS ORDERABLES Final Result [facility] [address] [facility] Department [place] [address] from Last 3 Months or Most Recently Relevant to Health Maintenance Insurance [facility] [employer] [facility] [employer] Care Teams Lining Baster Relationship Specialty Start Date End Date Oleg Jeong MD PCP - General 01/07/19
--- OUTSIDE RECORDS SUMMARY | 2025-02-17 14:26 | XMS_ITS | Encounter Summary ---
Author Organization [facility] Healthcare Address [address] [place] [address] Care Team Providers Care C Wpf Developer Name Role Phone Oleg Jeong MD Primary Care Provider [phone] Encounter Details Date Type Department Care Team ([facility] Contact Info) Description 01/25/2025 Results Follow-Up [facility] Medical Group Obstetrical Gynecology [address] [phone] June Bauman MD [address] [phone] Stool DNA - Cologuard Social History Tobacco Use Types Packs/Day Years Used Date Smoking Tobacco: Never Cigarettes Smokeless Tobacco: Never Comments No Sex and Gender Information Value Date Recorded Sex Assigned at Not on file Legal Sex Female 2:21 PM CDT Gender Identity Not on file Sexual Orientation Not on file documented as of this encounter Plan of Treatment Not on file documented as of this encounter Visit Diagnoses Not on filedocumented in this encounter Care Teams C Wpf Developer Relationship Specialty Start Date End Date Oleg Jeong MD PCP - General 01/07/19 documented as of this encounter
--- OUTSIDE RECORDS SUMMARY | 2025-02-17 14:26 | XMS_ITS | Clinical Summary ---
Author Organization [facility] Address [address] [place] [address] Care Team Providers Care Interior Block Wirer Name Role Phone Oleg Jeong MD Primary Care Provider [phone] Allergies Active Allergy Reactions Criticality Noted Date [...] 2018 Non-seasonal allergic rhinitis 2018 Migraine 08/28/2016 Encounters Date Type Department Care Team Description 02/02/2025 12:35 AM CDT - 02/02/2025 4:12 AM CDT Emergency [address] [address] Wally López, Chest wall pain (Primary Dx); Shortness of breath; Hypertension, unspecified type Discharge Disposition: Discharge to home or self care 01/29/2025 4:00 PM CDT Office Visit [facility] Obstetrical Gynecology [address] [place] [address] [phone] June Bauman MD Low bone mass (Primary Dx); Abnormal uterine bleeding; Fibroid 01/29/2025 3:30 PM CDT Ancillary Procedure [facility] Obstetrical Gynecology [address] [facility] [address] [place] [address] Abnormal uterine bleeding 01/25/2025 Results Follow-Up [facility] Obstetrical Gynecology [facility] [facility] [address] [place] [address] June Bauman MD Stool DNA - Cologuard 01/24/2025 Telephone [facility] Primary Care at [address] [place] [address] Sue Spain OR 12/08/2024 2:30 PM CDT - 12/08/2024 11:59 PM CDT Hospital Encounter [facility] Medical Office Bld[facility] [address] [facility] [address] [place] [address] Category 3 mammography result with short follow-up interval suggested for probably benign finding Discharge Disposition: Discharge to home or self care from Last 3 Months Immunizations Immunization Administration Dates Next Due DTP 10/22/1981,03/30/1980,04/24/1977 ,03/06/1977,01/30/1977 MMR 05/30/1991 OPV 10/22/1981,03/30/1980,04/24/1977 ,03/06/1977,01/30/1977 OPV, Unspecified 10/22/1981,03/30/1980, 7,03/06/1977,01/30/1977 Td, adsorbed 05/30/1991 Surgical History Surgery Date Site/Laterality Comments BREAST BIOPSY Left TUBAL LIGATION SECTION BREAST BIOPSY 06/30/2023 Left CHOLECYSTECTOMY Medical History Medical History Date Comments Abnormal Pap smear of cervix Fibroid Arthritis Asthma Family History Medical History Relation Name Comments No Known Problems Father No Known Problems Mother Breast cancer Neg Hx Ovarian cancer Neg Hx Uterine cancer Neg Hx Relation Name Status Comments Father Alive Mother Alive Social History Tobacco Use Types Packs/Day Years Used Date Smoking Tobacco: Never Cigarettes Smokeless Tobacco: Never Tobacco Cessation:Counseling Given: Not Answered Comments No Sex and Gender Information Value Date Recorded Sex Assigned at Not on file Legal Sex Female 2:21 PM CDT Gender Identity Not on file Sexual Orientation Not on file Obstetrics History Para Term AB IAB SAB Ectopic Multiple Livin g Live Births 3 2 2 1 2 2 Date Outcome GA Total Labor Labor/2nd/3rd Weight Sex Type Anes PTL Indu A1 A5 Name Clin Term CS-LT ranv Living Term CS-LT ranv Living AB Last Filed Vital Signs Vital Sign Reading [...] 02/01/2025 11:08 PM CDT Plan of Treatment Health Maintenance Due Date Last Done Comments Colon Cancer Screening-Colonoscopy 1976 Depression Screening 1976 DTaP/Tdap/Td Vaccine (6 - Tdap) 05/31/1991 05/30/1991, 10/22/1981, 03/30/1980, Additional history exists Hepatitis B Screening 1994 Pneumococcal vaccine <65 (1 of 2 - PCV) 12/02/1995 Cervical Cancer Screening 04/13/2024 04/13/2023, 12/2022 Influenza Vaccine (#1) 2025 Breast Cancer Screening-Mammogram 05/26/2025 05/26/2024, 05/17/2023, 04/15/2023, Additional history exists Regular Well Visit/Exam 18-64 07/28/2025 07/28/2024, 04/13/2023 Hepatitis C Screening Completed 08/10/2024, 023 Medical Devices Implanted Type Area Graphics Intern Device Identifier Shelf Expiration Date Model / Serial / Lot RSI ([employer]) [facility] Eviva 13cm Identifier Biopsy Site Rjbot-Tuaax-14 - [id number] Implanted:Qty: 1 on 06/30/2023 at [facility] Left: [employer] [id number] 02/03/2024 VIRGILIO-ALVERTO VA-13 / / [id number] Procedures Procedure Name Priority Date/Time Associated Diagnosis [...] HEPATITIS C ANTIBODY Routine 08/10/2024 12:40 PM COMPLAINT EVALUATION SUPERVISOR Well woman exam DIAGNOSTIC MAMMOGRAM BILATERAL W [...] Pt took 2 pills 81mg of ASA DIRECTOR SUPPLIER QUALITY. Pt AAOx4, not in distress, ambulatory. TECHNIQUE: [...] 2:33 AM - Electronically signed by Pati SMITH T: Report ID: [id number] Reading Location: [place] [address] Procedure Note Pati Delgado MD - 02/02/2025 [...] Pt took 2 pills 81mg of ASA DIRECTOR SUPPLIER QUALITY. Pt AAOx4, notin distress, ambulatory. TECHNIQUE: CT [...] Pati Delgado M.D. SN T: Report ID: [id number] Reading Location: [id number] Wally López DO IMG CT PROCEDURES Final Res ult * POCT hCG, urine (02/02/2025 1:40 AM CDT) [facility] HCG, ur, POC Negative Negative Lot Number [id number] QC Backgroud Clear Acceptable QC Control Line Acceptable Urine 02/02/2025 1:40 AM CDT Wally López DO POINT OF CARE TEST ORDERABL ES Final Result * Troponin T high-sensitivity 2-hour (02/02/2025 1:21 AM CDT) Pathologist [facility] Trop T hs <6 <=14 ng/L Comment: Interpretive Data For further hscTnT resources including the diagnostic algorithm and an aid in interpretation, copy and paste this link: https://nrl.testcatalog.org/show/hsTrop Current Interpretive Data last revised 2020. Trop T hs delta 0 ng/L CHARMAINE FORMAN Trop T hs interp Insignificant CHARMAINE FORMAN Blood 02/02/2025 1:21 AM CDT 02/02/2025 1:27 AM CDT Wally López DO LAB BLOOD ORDERABLES Final Result [facility]MA[facility] FORMAN [address] [facility] Department [place] [address] * XR Chest 1 Vw Portable (If [...] Pati Delgado M.D. SN T: Report ID: [id number] Reading Location: [id number] Procedure Note Pati Delgado MD - 02/01/2025 [...] Pati Delgado M.D. SN T: Report ID: [id number] Reading Location: [place] [address] Wally López DO IMG XR PROCEDURES Final [...] DO LAB BLOOD ORDERABLES Final Result CHARMAINE [address] [facility] Department [place] [address] * eGFR (02/01/2025 11:17 PM CDT) eGFR 83 >=60 mL/min/1. 73 m2 Comment: [...] López DO LAB BLOOD ORDERABLES Final Result [place] [address] [facility] [place] [address] * Differential, auto (02/01/2025 11:17 PM CDT) Neutrophil abs 3.34 1.50 - 6.50 K/cumm Imm gran abs 0.03 0.00 - 0.10 K/cumm [facility] Lymphocyte abs 1.95 0.80 - 3.30 K/cumm [facility] Monocyte abs 0.67 0.20 - 0.80 K/cumm [facility] Eosinophil abs 0.13 0.00 - 0.50 K/cumm [facility] Basophil abs 0.06 0.00 - 0.10 K/cumm [facility] Neutrophil pct 54.0 % CHARMAINE Comment: Interpretive Data Percent cell count reference ranges are not reported, since discordance with absolute values may lead to misinterpretation of CBC data. Current Interpretive Data was last revised on 2017. Imm gran pct 0.5 % [facility] Comment: Interpretive Data Percent cell count reference ranges are not reported, since discordance with absolute values may lead to misinterpretation of CBC data. Current Interpretive Data was last revised on 2017. Lymphocyte pct 31.6 % [facility] Comment: Interpretive Data Percent cell count reference ranges are not reported, since discordance with absolute values may lead to misinterpretation of CBC data. Current Interpretive Data was last revised on 2017. Monocyte pct 10.8 % [facility] Comment: Interpretive Data Percent cell count reference ranges are not reported, since discordance with absolute values may lead to misinterpretation of CBC data. Current Interpretive Data was last revised on 2017. Eosinophil pct 2.1 % [facility] Comment: Interpretive Data Percent cell count reference ranges are not reported, since discordance with absolute values may lead to misinterpretation of CBC data. Current Interpretive Data was last revised on 2017. Basophil pct 1.0 % [facility] Comment: Interpretive Data Percent cell count reference ranges are not reported, since discordance with absolute values may lead to misinterpretation of CBC data. Current Interpretive Data was last revised on 2017. Blood 02/01/2025 11:1 7 PM CDT 02/01/2025 11:19 PM CDT Wally López DO LAB BLOOD ORDERABLES Final Result [facility] [address] [facility] Department [place] [address] * (ABNORMAL) CBC with auto differential (02/01/2025 11:17 PM CDT) WBC 6.18 3.80 - 9.90 K/cumm Hgb 13.7 11.9 - 15.5 g/dL [facility] Hct 41.0 35.6 - 45.5 % [facility] Plt 375 150 - 400 K/cumm [facility] MPV 8.7(L) 9.1 - 12.3 fL [facility] RBC 4.35 3.90 - 5.20 M/cumm [facility] MCV 94.3 81.3 - 96.4 fL [facility] MCH 31.5 27.1 - 33.3 pg [facility] MCHC 33.4 32.3 - 35.7 g/dL [facility] RDW CV 12.4 11.1 - 14.9 % [facility] RDW SD 42.8 35.7 - 48.1 fL [facility] NRBC abs 0.00 0.00 - 0.01 K/cumm [facility] Blood Venous blood specimen / Unknown 02/01/2025 11:17 PM CDT 02/01/2025 11:19 PM CDT Wally López DO LAB BLOOD ORDERABLES Final Result Performing Organization Address City/[facility] Co de Phone Number [address] [employer] [place] [address] * (ABNORMAL) Magnesium (02/01/2025 11:17 PM CDT) [facility] Magnesium 2.6(H) 1.4 - 2.5 mg/dL Blood 02/01/2025 11:1 7 PM CDT 02/01/2025 11:19 PM CDT Kimmy Ortiz MD LAB BLOOD ORDERABLES Final Resul t Performing Organization Address [facility] de Phone Number [address] [place] [address] * (ABNORMAL) Comprehensive metabolic panel (02/01/2025 11:17 PM CDT) [facility] Sodium 140 135 - 145 mmol/L Potassium, pl 3.8 3.3 - 4.9 mmol/L [facility] Chloride 104 97 - 110 mmol/L [facility] CO2 21(L) 22 - 32 mmol/L [facility] Anion gap 15 2 - 15 mmol/L [facility] BUN 13 6 - 25 mg/dL [facility] Creatinine 0.86 0.60 - 1.10 mg/dL [facility] Glucose 77 70 - 199 mg/dL [facility] Comment: Interpretive Data Fasting glucose >/= [...] 2022. Calcium 8.8 8.5 - 10.3 mg/dL [facility] Bilirubin, total 0.3 0.1 - 1.2 mg/dL [facility] Protein, pl 6.7 6.5 - 8.5 g/dL [facility] Albumin 3.9 3.5 - 5.0 g/dL [facility] Alk phos 61 40 - 130 Units/L [facility] ALT 25 7 - 45 Units/L [facility] AST 35 10 - 45 Units/L [facility] Blood 02/01/2025 11:1 7 PM CDT 02/01/2025 11:19 PM CDT Wally López DO LAB BLOOD ORDERABLES Final Result CHARMAINE [address] [facility] Department [place] [address] * ECG 12 lead (02/01/2025 11:09 PM CDT) Pathologist [facility] Ventricular Rate EKG/Min 91 BPM [facility] Atrial Rate 91 BPM [facility] MD-Interval (MSEC) 146 ms [facility] QRS-Interval (MSEC) 100 ms [facility] QT-Interval (MSEC) 398 ms [facility] QTc 489 ms [facility] P [place] 54 degrees [facility] R [place] 38 degrees [facility] T [place] 44 degrees [facility] Diagnosis Normal sinus rhythm Prolonged QT Abnormal ECG When compared with ECG of 11-JUL-2021 21:32, No significant change was found Confirmed by ALICE COLLADO M.D. ([id number]) on 02/03/2025 2:52:15 AM [facility] 02/01/2025 11:0 9 PM CDT 02/03/2025 2:52 AM CDT Wally López DO ECG ORDERABLES Final Resul t [facility] * US Pelvis W Endovaginal [...] or other pelvic masses. June Bauman MD [facility] US PROCEDURES Final Re sult * Stool DNA - Cologuard (01/20/2025 10:00 AM CDT) Stool DNA - Cologuard Negative Negative [employer] (CLIA #:[id number]) Comment: The Cologuard (TM) test was performed [...] cancer. Following a negative Cologuard result, the [place] [employer] Society and U.S. Multi-Society Task Force screening guidelines recommend a Cologuard re-screening interval of 3 years. References: [place] [employer] Guideline for Colorectal Cancer Screening: https://www.cancer.org/cancer/vngjt-kwrehw-abhxxm/ejibcaaok-hinsreryv-lacjcit/ac s-rec ommendations.html.; Phuc MAC, Dave ADAMES, Yoselin RodK, Colorectal Cancer Screening: Recommendations for Physicians and Patients from the U.S. Multi-Society Task Force on Colorectal Cancer Screening , Am J Gastroenterology 2017; 112:1198-8196. TEST DESCRIPTION: Composite algorithmic analysis of stool [...] screened with both Cologuard and colonoscopy. (Sammie Moore, N Engl J Med 2014;370(14):9108-9730.) Cologuard may produce a false negative or false positive result (no colorectal cancer or precancerous polyp present at colonoscopy follow up). A negative Cologuard test result does not guarantee the absence of CRC or advanced adenoma (pre-cancer). The current Cologuard screening interval is every 3 years. ([place] [employer] Society and U.S. Multi-Society Task Force). Cologuard performance data in a 10,000 patient pivotal study using colonoscopy as the reference method can be accessed at the following location: www.IID.Isoflux/results. Additional description of the Cologuard test process, warnings and precautions can be found at www.cologPrediktrd.com. Stool 01/20/2025 10:0 0 AM CDT 01/21/2025 9:35 PM CDT June Bauman MD LAB BODY FLUIDS AND STOOLS ORDERABLES Final Result [employer] (CLIA #:[id number]) [place] [address] * Diagnostic Mammogram Left W Jens (12/08/2024 2:54 PM CDT) Anatomical Region Laterality Modality Breast Left Mammography 12/08/2024 3:04 PM CDT Impressions 12/08/2024 3:04 PM CDT [...] thickening. No axillary adenopathy is seen mammographically. Reva Mckeon MD PhD IMG MAMMO PROCEDURES Final Result * Hepatitis C antibody Blood (08/10/2024 12:40 PM COMPLAINT EVALUATION SUPERVISOR) Hep C Ab NON-REACTI VE NON-REACT [facility] Comment: HCV antibody was non-reactive. There is no laboratory evidence of HCV infection. In most cases, no further action is required. However, if recent HCV exposure is suspected, a test for HCV RNA (test code 36848) is suggested. For additional information please refer to http://education.Kiveda/faq/THU41i5 (This link is being provided for informational/ educational purposes only.) Blood 08/10/2024 12:4 0 PM COMPLAINT EVALUATION SUPERVISOR 08/10/2024 12:43 PM COMPLAINT EVALUATION SUPERVISOR Narrative [facility] - 08/11/2024 9:07 AM COMPLAINT EVALUATION SUPERVISOR FASTING:UNKNOWN FASTING: UNKNOWN June Bauman MD LAB MICROBIOLOGY - GENERAL ORDERABLES Final Result [facility] [address] [place] [address] * Diagnostic Mammogram Bilateral W Jens (05/26/2024 [...] Electronically signed by Zuri Long M.D. LD: RAMEZ Report ID: [id number] Reading Location: [facility] Reva Mckeon MD PhD IMG MAMMO PROCEDURES Final Result * High Risk HPV DNA Detection with Genotyping (Molecular component) (04/13/2023 12:34 PM CDT) HPV HR 16 Not Detected Not Detected [facility] FORMAN Comment:Testing performed by : [facility], [address] [place]., [address] HPV HR 18 Not Detected Not Detected CHARMAINE FORMAN Comment:Testing performed by : [facility], [address] [place]., [address] HPV HR Non 16/18 Not Detected Not [...] this test have been verified by the [facility] Molecular Infectious Disease laboratory. Correlate with separately reported cytology results, as applicable. Interpretive data last revised 23 Testing performed by: [facility], [address] [facility], [place]., [address] Endocervical 04/13/2023 12:3 4 PM CDT 04/15/2023 7:43 PM CDT Narrative CHARMAINE - 04/16/2023 2:30 AM CDT Clinical history and diagnosis->routine Number of vials->1 Testing type->Screening Last menstrual period (date if known)->03/29/2023 June Bauman MD LAB BODY FLUIDS AND STOOLS ORDERABLES Final Result [facility]MA[facility] [address] [facility] [place] [address] from Last 3 Months or Most Recently Relevant to Health Maintenance Insurance [facility] [employer] [employer] Member Subscriber Plan / Payer (Ef fective 2014-Present) Name:Raine Limon Relation to Subscriber:Self Name:Raine Limon Payer ID:[id number] (NAIC) Group ID:[id number] Type:BC ALLI[employer] Address: [facility] [address] [place] [phone] Care Teams Interior Block Wirer Relationship Specialty Start Date End Date Oleg Jeong MD PCP - General 01/07/19
--- OUTSIDE RECORDS SUMMARY | 2025-02-17 14:26 | XMS_ITS | Data Portability ---
Author Organization [facility] If You Can , [facility] Address [address] [place] [address] Assessment No assessment recorded. Plan of Treatment Reminders Order Date Submit Date Provider Last Modified By Organization Details Last Modified Time Details Appointments None recorded. Lab bacterial vaginosis + vaginitis panel, vaginal 2021 022 [id number]_ [id number] [facility], [address] [place] [address], [address], 3 03:39:02 unlisted lab - vaginitis plus STD panel 2020 021 JARVIS [facility], [address] [place] [address], [address], 1 09:36:31 urinalysis , dipstick 2020 021 [email or web address] [facility], [address] [place], [address], 1 23:16:12 urinalysis complete, reflex culture 2020 021 [facility], [address] [place], [address], 02:31:53 Referral None recorded. Procedures None recorded. Surgeries None recorded. Imaging MAMMO, diagnostic , unilateral - Left breast pain, history of left breast cyst 2021 022 [facility], [address] [facility], [place], [address], 13:14:56 US, breast, unilateral - Left breast pain and cyst. 2021 022 [email or web address] [facility] Scheduling, [address] [facility], [place], [address], 13:02:44 MAMMO, screening, unilateral - right breast screening mammogram, left breast [email or web address] [address] [facility], [place], [address], 13:14:56 Medication Orders nystatin-t riamcinolo ne 100,000 unit/g-0.1 % topical cream 2021 022 [email or web address] Not available 16:41:31 Diflucan 150 mg tablet 2020 021 JARVIS Not available 18:19:14 metronidaz ole 500 mg tablet 2020 021 [email or web address] Not available 16:41:11 Patient TargetsNo targets recorded. Patient Instructions Encounter Date Encounter Id Patient Instructions Last Modified By Organization Details Last Modified Time 07/09/2021 [id number] vaginitis: care instructions Not available 07/09/2021 18:19:12 10/27/2021 [id number] vaginitis: care instructions Not available 10/27/2021 13:16:05 already had work-up for MMR return to discuss plan [email or web address] Not available 10/27/2021 14:15:05 11/03/2021 [id number] Patient declines EMB today, samples of Sylnd given today [email or web address] Not available 11/04/2021 00:18:56 Reason for Referral None Reported. Results Created Date Observation Date Name Description Value Unit Range Abnormal Flag Note LastModifiedBy Organization Detail LastModifiedTime 07/09/20 21 07/10/2021 VAGIN ITIS PLUS STD PANEL bacterial vaginosis BV POS negati ve positive Not Available [address], [address], 07/11/2021 09:36:31 07/09/20 21 07/10/2021 VAGIN ITIS PLUS STD PANEL autumn species C. spp neg negati ve Not Available [address], [address], 07/11/2021 09:36:31 07/09/20 21 07/10/2021 VAGIN ITIS PLUS STD PANEL autumn glabrata C. gla neg negati ve Not Available [address], [address], 07/11/2021 09:36:31 07/09/20 21 07/10/2021 VAGIN ITIS PLUS STD PANEL trichomonas vaginalis CV/TV TRICH neg negati ve Not Available [address], [address], 07/11/2021 09:36:31 07/09/20 21 07/10/2021 VAGIN ITIS PLUS STD PANEL chlamydia trachomatis CT neg negati ve If both Pap and Endoc ervic al swabs are colle cted, the Prese rvCyt Solut ion liqui d Pap speci men must be colle cted befor e the endoc ervic al swab speci men. Not Available [address], [address], 07/11/2021 09:36:31 07/09/20 21 07/10/2021 VAGIN ITIS PLUS STD PANEL neisseria gonorrhoeae GC neg negati ve If both Pap and Endoc ervic al swabs are colle cted, the Prese rvCyt Solut ion liqui d Pap speci men must be colle cted befor e the endoc ervic al swab speci men. Not Available [address], [address], 07/11/2021 09:36:31 07/09/20 21 07/09/2021 urina lysis , dipst ick Leukocytes Negati ve Not Available [address], [place], [address], 07/09/2021 18:06:32 07/09/20 21 07/09/2021 urina lysis , dipst ick Nitrite negati ve Not Available [address], [place], [address], 07/09/2021 18:06:32 07/09/20 21 07/09/2021 urina lysis , dipst ick Urobilinogen .2 Not Available [address], [place], [address], 07/09/2021 18:06:32 07/09/20 21 07/09/2021 urina lysis , dipst ick Protein Negati ve Not Available [address], [place], [address], 07/09/2021 18:06:32 07/09/20 21 07/09/2021 urina lysis , dipst ick pH 5.0 Not Available [address], [place], [address], 07/09/2021 18:06:32 07/09/20 21 07/09/2021 urina lysis , dipst ick Blood Negati ve Not Available [address], [place], [address], 07/09/2021 18:06:32 07/09/20 21 07/09/2021 urina lysis , dipst ick Specific [place] 1.000 Not Available [address], [place], [address], 07/09/2021 18:06:32 07/09/20 21 07/09/2021 urina lysis , dipst ick Ketone Negati ve Not Available [address], [place], [address], 07/09/2021 18:06:32 07/09/20 21 07/09/2021 urina lysis , dipst ick Bilirubin Negati ve Not Available [address], [place], [address], 07/09/2021 18:06:32 07/09/20 21 07/09/2021 urina lysis , dipst ick Glucose Negati ve Not Available [address], [place], [address], 07/09/2021 18:06:32 07/09/20 21 07/09/2021 urina lysis , dipst ick Appearance Clear Not Available [address], [place], [address], 07/09/2021 18:06:32 07/09/20 21 07/09/2021 urina lysis , dipst ick Color Pale Yellow Not Available [address], [place], [address], 07/09/2021 18:06:32 07/10/20 21 07/11/2021 URINA LYSIS , COMPL ETE W/REF ALESSIA TO CULTU RE color YELLOW yellow normal Not Available [address], [address], 07/11/2021 02:31:52 07/10/20 21 07/11/2021 URINA LYSIS , COMPL ETE W/REF ALESSIA TO CULTU RE appearance CLEAR clear normal Not Available [facility] [address] [place], [address], 07/11/2021 02:31:52 07/10/2007/11/2021 URINA LYSIS , COMPL ETE W/REF ALESSIA TO CULTU RE specific gravity 1.006 1.001- 1.035 normal Not Available [address], [address], 07/11/2021 02:31:52 07/10/20 21 07/11/2021 URINA LYSIS , COMPL ETE W/REF ALESSIA TO CULTU RE pH 6.0 5.0-8. 0 normal Not Available [address], [address], 07/11/2021 02:31:52 07/10/2007/11/2021 URINA LYSIS , COMPL ETE W/REF ALESSIA TO CULTU RE glucose NEGATI VE negati ve normal Not Available [address], [address], 07/11/2021 02:31:52 07/10/2007/11/2021 URINA LYSIS , COMPL ETE W/REF ALESSIA TO CULTU RE bilirubin NEGATI VE negati ve normal Not Available [address], [address], 07/11/2021 02:31:52 07/10/2007/11/2021 URINA LYSIS , COMPL ETE W/REF ALESSIA TO CULTU RE ketones NEGATI VE negati ve normal Not Available [address], [address], 07/11/2021 02:31:52 07/10/2007/11/2021 URINA LYSIS , COMPL ETE W/REF ALESSIA TO CULTU RE occult blood NEGATI VE negati ve normal Not Available [address], [address], 07/11/2021 02:31:52 07/10/20 21 07/11/2021 URINA LYSIS , COMPL ETE W/REF ALESSIA TO CULTU RE protein NEGATI VE negati ve normal Not Available [address], [address], 07/11/2021 02:31:52 07/10/20 21 07/11/2021 URINA LYSIS , COMPL ETE W/REF ALESSIA TO CULTU RE nitrite NEGATI VE negati ve normal Not Available [address], [address], 07/11/2021 02:31:52 07/10/20 21 07/11/2021 URINA LYSIS , COMPL ETE W/REF ALESSIA TO CULTU RE leukocyte esterase NEGATI VE negati ve normal Not Available [address], [address], 07/11/2021 02:31:52 07/10/20 21 07/11/2021 URINA LYSIS , COMPL ETE W/REF ALESSAI TO CULTU RE WBC NONE SEEN /hpf < or = 5 normal Not Available [address], [address], 07/11/2021 02:31:52 07/10/20 21 07/11/2021 URINA LYSIS , COMPL ETE W/REF ALESSIA TO CULTU RE RBC NONE SEEN /hpf < or = 2 normal Not Available [address], [address], 07/11/2021 02:31:52 07/10/20 21 07/11/2021 URINA LYSIS , COMPL ETE W/REF ALESSIA TO CULTU RE squamous epithelial cells NONE SEEN /hpf < or = 5 normal Not Available [address], [address], 07/11/2021 02:31:52 07/10/20 21 07/11/2021 URINA LYSIS , COMPL ETE W/REF ALESSIA TO CULTU RE bacteria NONE SEEN /hpf none seen normal Not Available [facility] [address] [address] [place], [address], 07/11/2021 02:31:52 07/10/20 21 07/11/2021 URINA LYSIS , COMPL ETE W/REF ALESSIA TO CULTU RE hyaline cast NONE SEEN /lpf none seen normal Not Available [address] [address] [place], [address], 07/11/2021 02:31:52 07/10/20 21 07/11/2021 REFLE XIVE URINE CULTU RE reflexive urine culture NO CULTU RE INDIC ATED Not Available [address] [address] [place], [address], 07/11/2021 02:31:53 10/28/19 22 10/29/2021 VAGIN ITIS PLUS STD PANEL bacterial vaginosis BV neg negati ve Not Available [address], [address], 10/29/2021 17:14:47 10/28/19 22 10/29/2021 VAGIN ITIS PLUS STD PANEL autumn species C. spp POS negati ve positive Not Available [address], [address], 10/29/2021 17:14:47 10/28/19 22 10/29/2021 VAGIN ITIS PLUS STD PANEL autumn glabrata C. gla neg negati ve Not Available [address], [address], 10/29/2021 17:14:47 10/28/19 22 10/29/2021 VAGIN ITIS PLUS STD PANEL trichomonas vaginalis CV/TV TRICH POS negati ve positive Not Available [address], [address], 10/29/2021 17:14:47 10/28/19 22 10/29/2021 VAGIN ITIS PLUS STD PANEL chlamydia trachomatis CT neg negati ve If both Pap and Endoc ervic al swabs are colle cted, the Prese rvCyt Solut ion liqui d Pap speci men must be colle cted befor e the endoc ervic al swab speci men. Not Available [address], [address], 10/29/2021 17:14:47 10/28/19 22 10/29/2021 VAGIN ITIS PLUS STD PANEL neisseria gonorrhoeae GC neg negati ve If both Pap and Endoc ervic al swabs are colle cted, the Prese rvCyt Solut ion liqui d Pap speci men must be colle cted befor e the endoc ervic al swab speci men. Not Available [address], [address], 10/29/2021 17:14:47 06/01/2005/30/2022 MAMMO , diagn ostic , digit al, bilat eral No observ ation record ed. [email or web address] [address], [address], 06/02/2022 10:57:05 Result Notes None recorded. Problems Name Problem SNOMED Code Status Onset Date Resolution Date Notes Provider Name and Address Organization Details Recorded Time Syphilis test finding 517319856 Completed 202010/27/2021 Encounte r for screenin g for infectio ns with a predomin antly sexual mode of transmis fatmata; Progress : Stable Added By: Kelly Botello Add to Current Problems : YES ProblemS tatus: Current Ary rich, [employer] IV 2 12:56:27 Sampling of vagina for Papanico laou smear Completed 202010/27/2021 Encounte r for gynecolo gical examinat ion (general ) (routine ) without abnormal findings ; Progress : Stable Added By: Kelly Botello Add to Current Problems : YES ProblemS tatus: Current Ary rich, [employer] IV 2 12:56:10 Abnormal uterine bleeding 05922245141 100 Active 2020 Other specifie d abnormal uterine and vaginal bleeding ; Progress : Stable Added By: Kelly Botello Add to Current Problems : YES ProblemS tatus: Current Not Available [facility] 2 09:20:02 Menorrha bernard 833065488 Active 2020 Excessiv e and frequent menstrua tion with regular cycle; Progress : Stable Added By: Kelly Botello Add to Current Problems : YES ProblemS tatus: Current Kelly Botello DO [address] [place], [address] , [place] [facility] 2 12:34:20 Dysuria 55140447 Completed 202010/27/2021 Dysuria; Progress : Stable Added By: Bia Menard Add to Current Problems : YES ProblemS tatus: Current Ary Koby rich, [facility] 2 12:55:52 Subacute and chronic vaginiti s 979118696 Active 2020 Subacute and chronic vaginiti s; Progress : Stable Added By: Kelly Botello Add to Current Problems : YES ProblemS tatus: Current Not Available [facility] 2 09:20:01 Screenin g mammogra phy Completed 202010/27/2021 Encounte r for screenin g mammogra m for malignan t neoplasm of breast; Progress : Stable Added By: Kelly Botello Add to Current Problems : YES ProblemS tatus: Current Ary Koby rich, [place] [facility] IV 2 12:56:17 Screenin g for malignan t neoplasm of cervix Completed 202010/27/2021 Encounte r for screenin g for malignan t neoplasm of cervix; Progress : Stable Added By: Kelly Botello Add to Current Problems : YES ProblemS tatus: Current Ary Koby rich, [facility] 2 12:56:22 Problem Notes None recorded. Procedures Surgical History Date Name Laterality Status Provider Name and Address Organization Details Recorded Time 1 Most Recent Mammogram completed Bia Menard [facility] 07/09/2021 17:46:05 Date of Last Pap Smear completed Petros Taveras [facility] IV 03/16/2022 16:40:18 C Section completed [facility] - [facility] IV 07/09/2021 17:46:34 Gall bladder completed [facility] IV 07/09/2021 17:46:34 Imaging Results None recorded. Procedure Notes None recorded. Medical Equipment None Reported. Allergies Allergen ID Allergen Name Allergen Category Reaction Reaction Severity Criticality Documentation Date Start Date Code Code System Note Provider Name and Address Organization Details Recorded Time 202133 shellfish derived food,medi cation Not available Not available Not available 07/09/2021 [id number] [facility] Mansoor layla, [facility] 17:45:39 Medications Name Sig Start Date Stop Date Status Note LastModified by Organization Details LastModified Time latanopro st 0.005 % eye drops INSTILL 1 DROP INTO BOTH EYES AT BEDTIME active Not Available Not Available No t Available cetirizin e 10 mg tablet 03/16 completed Not Available Not Available Not Available oxybutyni n chloride ER 10 mg tablet,ex tended release 24 hr active Not Available Not Available Not Available azithromy beny 250 mg tablet TAKE 2 TABLETS BY MOUTH TODAY, THEN TAKE 1 TABLET DAILY FOR 4 DAYS active Not Available Not Available No t Available ibuprofen 800 mg tablet active Not Available Not Available Not Available Cytotec 200 mcg tablet take 2 tabs po night before procedur e and 2 tabs po morning of procedur e 07/09 completed Cytotec 200 mcg oral tablet RxNorm: [id number] Allow Substitu tion: True Refill Denied: No Edited by: Ruddy Daniels ) on 12/20/19 21 Stopped by: Ruddy Daniels ) on Not Available Not Available Not Available fluconazo le 150 mg tablet TAKE 1 TABLET (150 MG TOTAL) BY MOUTH ONCE FOR 1 DOSE. active Not Available Not Available No t Available hydrocodo ne 5 mg-acetam inophen 325 mg tablet TAKE 1 TABLET BY MOUTH EVERY 6 (SIX) HOURS NEEDED FOR PAIN active Not Available Not Available No t Available prednison e 20 mg tablet TAKE 1 TABLET BY MOUTH TWICE A DAY active Not Available Not Available No t Available clindamyc in HCl 150 mg capsule take 1 capsule by oral route 2 times per day for 10 days 07/09 completed clindamy beny HCL 150 mg oral capsule RxNorm: [id number] Allow Substitu tion: True Refill Denied: No Edited by: Ruddy Daniels ) on 12/20/19 21 Stopped by: Ruddy Daniels ) on Not Available Not Available Not Available metronida zole 500 mg tablet TAKE 1 TABLET BY MOUTH TWICE A DAY FOR 7 DAYS active Not Available Not Available No t Available ciproflox acin 500 mg tablet TAKE 1 TABLET BY MOUTH EVERY 12 HOURS active Not Available Not Available No t Available triamcino lone acetonide 0.1 % topical cream APPLY TO AREAS TWICE A DAY active Not Available Not Available No t Available ciclopiro x 8 % topical solution 03/16 completed Not Available Not Available Not Available oxycodone -acetamin ophen 5 mg-325 mg tablet TAKE 1 TABLET BY MOUTH EVERY 4 TO 6 HOURS NEEDED FOR PAIN active Not Available Not Available No t Available triamcino lone acetonide 0.1 % topical ointment APPLY TO AFFECTED AREA TWICE A DAY active Not Available Not Available No t Available clotrimaz ole-betam ethasone 1 %-0.05 % topical cream 03/16 completed Not Available Not Available Not Available lidocaine 5 % topical patch PLACE 1 PATCH ON THE SKIN DAILY USE PATCH FOR 12 HOURS ON, 12 HOURS OFF. DISCARD AFTER EACH USE active Not Available Not Available No t Available megestrol 40 mg tablet TAKE 1 TABLET BY MOUTH EVERY DAY 03/16 completed Not Available Not Available Not Available nystatin- triamcino lone 100,000 unit/g-0. 1 % topical cream APPLY TO THE AFFECTED AREA(S) BY TOPICAL ROUTE 2 TIMES PER DAY IN THE MORNING AND EVENING 03/16 completed Not Available Not Available Not Available monteluka st 10 mg tablet TAKE 1 TABLET BY MOUTH EVERYDAY AT BEDTIME active Not Available Not Available No t Available clindamyc in 2 % vaginal cream 03/16 completed Not Available Not Available Not Available ergocalci ferol (vitamin D2) 1,250 mcg (50,000 unit) capsule TAKE 1 CAPSULE EVERY WEEK BY ORAL ROUTE. active Not Available Not Available No t Available ibuprofen 600 mg tablet TAKE 1 TABLET BY MOUTH THREE TIMES A DAY active Not Available Not Available No t Available albuterol sulfate HFA 90 mcg/actua tion aerosol inhaler TAKE 2 PUFFS BY MOUTH EVERY 4 HOURS NEEDED FOR WHEEZING OR SHORTNES S OF BREATH active Not Available Not Available No t Available fluticaso ne propionat e 50 mcg/actua tion nasal spray,dominga pension SPRAY 1 SPRAY BY NASAL ROUTE EVERY DAY active Not Available Not Available No t Available azithromy beny 500 mg tablet TAKE 1 TABLET BY MOUTH EVERY DAY FOR 3 DAYS active Not Available Not Available No t Available cyclobenz aprine 5 mg tablet TAKE 1 TABLET BY MOUTH TWICE A DAY NEEDED active Not Available Not Available No t Available nitrofura ntoin monohydra te/macroc rystals 100 mg capsule TAKE 1 CAPSULE (100 MG TOTAL) BY MOUTH EVERY 12 (TWELVE) HOURS FOR 5 DAYS. active Not Available Not Available No t Available budesonid e-formote rol HFA 160 mcg-4.5 mcg/actua tion aerosol inhaler INHALE 2 PUFFS INTO THE LUNGS TWICE A DAY active Not Available Not Available No t Available Flonase Sensimist 27.5 mcg/actua tion nasal spray,dominga pension active fluticas one furoate 27.5 mcg/actu ation Intranas al Ceylon, Suspensi on RxNorm: [id number] Allow Substitu tion: False Refill Denied: No Refill DateOccu rred: 11/07/19 21 Edited by: Bia Justin) on 11/07/19 21 Stopped by: Bia Justin) on Not Available Not Available Not Available Myfembree 40 mg-1 mg-0.5 mg tablet TAKE 1 TABLET BY MOUTH EVERY DAY active Not Available Not Available No t Available Flowflex COVID-19 Antigen Home Test kit FOLLOW INSTRUCT IONS INCLUDED WITH THE PACKAGE. 03/16 completed Not Available Not Available Not Available Vitals Date Recorded Body height Body mass index (BMI) Body weight Body temperature Systolic And Diastolic Provider Name and Address Organization Details Last Updated DateTime 10/27/2021 157.48 cm 38.2 kg/m2 66604.0 9 g 98 [degF] 140/88 mm[Hg] Ary Whlaen [employer] [facility] 2 12:15:08 Date Recorded Body height Body mass index (BMI) Body weight Body temperature Systolic And Diastolic Provider Name and Address Organization Details Last Updated DateTime 11/03/2021 157.48 cm 38.4 kg/m2 40545.1 2 g 96.8 [degF] 130/80 mm[Hg] Ary Whalen [facility] [employer] [facility] IV 2 17:32:09 Date Recorded Body height Body mass index (BMI) Body weight Body temperature Systolic And Diastolic Provider Name and Address Organization Details Last Updated DateTime 03/16/2022 157.48 cm 37.6 kg/m2 00344.5 9 g 98.2 [degF] 134/82 mm[Hg] Petros Taveras [facility] [employer] [facility] IV 2 17:04:32 Date Recorded Body height Provider Name an d Address Organization Details Last Updated DateTime 07/09/2021 157.48 cm Bia Menard [facility] [employer] [facility] IV 07/09/2021 17:45:23 Social History Question Answer Notes LastModified by Organizat ion Details LastModified Time Tobacco Smoking Status Never Smoker Bia Menard [facility] [employer] IV 07/09/2021 17:46:25 Are You Blind Or Do You Have Difficulty Seeing? No [email or web address] Information not available 03/16/2022 Are You Deaf Or Do You Have Serious Difficulty Hearing? No [email or web address] Information not available 03/16/2022 How Many Children Do You Have? 2 [email or web address] Information not available 03/16/2022 What Is Your Relationship Status? Single Information not available 07/09/2021 Are You Sexually Active? No Information not available 03/16/2022 Sex: Unknown Functional Status Question Answer Note LastModified by Organizat ion Details LastModified Time Do you use any illicit or recreational drugs? No [email or web address] Information not available 03/16/2022 What is your level of alcohol consumption? None Information not available 07/09/2021 Do you or have you ever used e-cigarettes or vape? Never used electronic cigarettes Information not available 07/09/2021 What is your exercise level? Occasional Information not available 07/09/2021 Mental Status None recorded. Family History Nothing Reported. Medical History Condition Response Arthritis Y Gynecological History Statement/Question Response Flow Heavy Frequency of Cycle (Q days) 28 Date of LMP 02/20/2022 Date of Last Pap Smear 01/07/2021 Duration of Flow (days) 7 Most Recent Mammogram 04/09/2021 Current Control Method None Age at Menarche 14 Obstetrics History GPAL:G 4 P 2 0 2 2 Type Value Full Term 2 Induced 2 Living 2 Total 4 Past Encounters Encounter ID Performer Location Encounter Start Date Encounter Closed Date Diagnosis/Indication Diagnosis SNOMED-CT Code Diagnosis ICD10 Code Diagnosis Note [id number] Kelly Botello [address] [place] [address] 07/09/2021 16:42:23 07/22/2021 15:27:36 Vaginal discharge 751150641 N89.8 N76.0 Dysuria 78716571 R30.9 Screening for disorder 493870856 Z13.9 [id number] Kelly Botello DO [address] [place] [address] 10/27/2021 12:06:59 10/27/2021 15:28:19 Vaginal discharge 281557329 N89.8 N76.0 Screening for disorder 053415566 Z11.3 N89.9 Excessive and frequent menstruation 873770625 N92.0 Vaginitis 22400084 N76.0 [id number] Kelly Botello [address] [place] [address] 11/03/2021 16:55:55 11/04/2021 09:35:05 Disorder of menstruation 398096545 N92.6 [id number] Kelly Botello [address] [place] [address] 03/16/2022 16:23:28 03/17/2022 10:45:14 Gynecologic examination 67924612 Z01.419 Cyst of left breast 1073 986895 5714473 N60.02 Screening for malignant neoplasm of breast 976488871 Z12.39 Health Concerns Section Related Observation LastModified by Organization Detai ls LastModified Time None Recorded Concern Status LastModified by Organization Details LastModified Time None Recorded Advance Directives Directive None Recorded Payers Insurance Date Sequence Insurance Name Policy Number Policy Du Covered Member ID Du Member ID Guarantor Name 07/22/2021 1 [place] 112 Raine Braxton [id number] Raine Braxton 03/13/2022 1 [place] 112 Raine Braxton [id number] Raine Braxton Notes Date Note Type Note Provider Name and Address Organization Details Recorded Time 07/09/2021 text/html Vaginal/Vulvar ProblemReported bypatient.Location:[facility] Onset/Timing:gradual Duration:present for >1 month; constant Quality:itching; burning; irritation Patient with complaint of vaginal discharge present for several days, also having itching, burning, irritation Kelly Botello DO [address] [place] [address], [address], [employer] IV 07/09/2021 22:49:39 10/27/2021 text/html Vaginal/Vulvar ProblemReported bypatient.Location:[facility] Duration:present for 1-7 days Quality:itching; burning Severity:severe Patient presents with a complaint of vaginal itching, burning for over a week, had intercourse with a new partner. Also complained of vaginal pain and dryness during intercourse. Kelly Botello DO [address] [place] [address], [address], [employer] IV 10/27/2021 14:15:42 11/03/2021 text/html Patient presents with a history of heavy irregular bleeding., symptoms present for a year now. Ultrasound 12/16/20 showed a 4.8x4.7x3.8cm fibroid, emc 6mm. last mammogram 04/29, FSH, LH, and estrogen levels normal, history of two prior cesareans. Needs EMB Kelly Botello DO [address] [place] [address], [phone], [facility] IV 11/04/2021 00:19:16 03/16/2022 text/html Annual GYNReport ed bypatient.Menstrual cycle:Normal menses Urinary symptoms:No hematuria; No incontinence Vulva:No genital lesion Vagina:Normal vaginal discharge Breast:No breast pain; No breast lump; No nipple discharge Sexual complaints:No sexual complaints; No pain during intercourse; Normal libido Menopausal Symptoms:No menopausal symptoms; Normal vaginal lubrication Psychological symptoms:No depression; No anxiety; No PMDD Patient presents for annual exam without pap. Last pap 12/17/20. Normal, HPV negative pt states she has been having left breast pain from a cyst they can not remove ( Patient states that Dr Archer attempted to remove cyst.pt has no other concerns or questions today. Kelly Botello, DO [address] [facility], [place], [address], [facility] 03/16/2022 21:16:49 OBGyn Episode No OBEpisode recorded.
--- OUTSIDE RECORDS SUMMARY | 2025-02-17 14:26 | XMS_ITS | Patient Health Record ---
Author Organization 1 OF Stewart colunga D[facility] Address [address] [place] [address] [place] [address] Care Team Providers Care Firearms Specialist Name Role Phone Oleg Jeong MD Primary Care Provider Unavail able Alesha Garcai Unavailable [phone] Allergies No Known Allergies Reason For Referral No Information Medications Medication SIG (Take, Route, Frequency, Duration) Notes Start Date End Date Status Albuterol Sulfate HFA 108 (9 0 Base) MCG/ACT TAKE 2 PUFFS BY MOUTH EVERY 4 HOURS NEEDED FOR WHEEZING OR SHORTNESS OF BREATH Inhalation; Duration: 30 Active Budesonide-Formoterol Fumarate 160-4.5 MCG/ACT TAKE 2 PUFFS BY MOUTH TWICE A DAY Inhalation; Duration: 30 Active Montelukast Sodium 10 MG TAKE 1 TABLET B Y MOUTH EVERYDAY AT BEDTIME Oral; Duration: 90 Active metroNIDAZOLE 500 MG TAKE 1 TABLET BY MO UTH TWICE A DAY Oral; Duration: 10 Active Triamcinolone Acetonide 0.1 % APPLY TO A FFECTED AREA TWICE A DAY External; Duration: 30 Active Cyclobenzaprine HCl 5 MG Oral; Duration: 15 Active Social History Tobacco Use: Social History Observation Description Date Details (start date - stop date) Never Smoker NA - NA Tobacco Use/Smoking Question Answer Notes Are you a nonsmoker Plan Of Treatment No Information Insurance Providers Payer Name Payer Address Payer Phone Subscriber Number Group Number Insured Name Patient Relationship to Insured Coverage Start Date Coverage End Date [facility] [address] [place] [address] [id number] Raine Limon Self - patient is the insured Medical (General) History Medical History History ICD Code Diabetes, Asthma Surgical History Surgery Date(Month/Year)
== END 2025-02-17 14:23 | disposition home or self-care (01) ==
PROVIDERS: Visit Provider Orthopaedic Surgery
DX: M25.562 Pain in left knee (principal)
CPT/HCPCS: 73564

== ENCOUNTER 2025-07-30 03:17 | Day surgery (SDC) | payer BC, SELFPAY ==
--- OUTSIDE RECORDS SUMMARY | 2024-09-26 08:40 | XMS_ITS ---
Author Organization 1 MARQUITA colunga DPM [facility] Address [address] [facility] [address] [place] [address] Care Team Providers Care Market Research Coordinator Name Role Phone Oleg Jeong MD Primary Care Provider Unavail able Alesha Garcia Unavailable [phone] REASON FOR VISIT B/L heel pain Encounters Encounter Location Date Provider Diagnosis 3 COL Lisa Burton DPM [facility] [address] [place] [address] 09/26/2024 Alesha Garcia Plan Of Treatment No Information History and Physical Notes * HPI (History of Present Illness) Category Sub-Category Detail Notes Category Not es Primary reason for visit: Recurrent issue: 48 y/o female RTO c/o recurrent b/l heel pain. Pt was last seen in 10/28 for b/l PF.Today she reports.. MA assisting with visit: HPI/Rooming: ..... Chart Prep Irshan Examination Category Sub-Category Detail Notes Category Not es General Examination Mental status: Cooperative, Oriented to person, place and time, Mood and affect: normal, Judgement and intellect: normal with appropriate response to questions , Cooperative, Oriented to person, place and time, Mood and affect: normal, Judgement and intellect: normal with appropriate response to questions Shoes today: XXXX , flats Exam unchanged from prior visit: with no significant changes in appearance or condition of feet Constitutional / Appearance: No acute di stress , Well nourished, Appropriate personal hygiene , No acute distress , Well nourished, Appropriate personal hygiene Lower Extremity VASCULAR: Pulses: DP and PT pulse s, palpable, bilateral Temperature gradient: warm from proximal to distal, bilateral Pedal hair: present, bilateral Capillary refill at distal toes less lulu n 3 seconds, bilateral Lower Extremity NEURO: Monofilament test (10 gram pressure) Exam of 10/27/2021: revealed intact sensation to, entire foot, bilateral Vibration perception: Exam of 10/28/2021 : noted intact per evaluation with 128Hz tuning fork applied to distal hallux compared to ipsilateral medial malleolus @ bilateral feet General sensation appears intact, bilate ral Muscle tone within normal limits , bilateral Lower Extremity MSK: Muscle strength: 5/5 , all 4 quad rants tested, bilateral Foot type: Bilateral lower extr emity exhibits rectus foot and normal arch height Left lower extremity inspect ion and palpation: No palpable masses or nodules noted. No acute pain with palpation of the plantar medial tubercle of the calcaneus or the plantar arch. Negative lateral squeeze test of the calcaneus. No pain with palpation along the Achilles tendon or posterior tibial tendon. Less than 10 degrees of ankle joint dorsiflexion noted with the knee extended, which increases with the knee flexed. Right lower extremity inspec tion and palpation: No palpable masses or nodules noted. No acute pain with palpation of the plantar medial tubercle of the calcaneus or the plantar arch. Negative lateral squeeze test of the calcaneus. No pain with palpation along the Achilles tendon or posterior tibial tendon. Less than 10 degrees of ankle joint dorsiflexion noted with the knee extended, which increases with the knee flexed. Gait Gait unremarkable wi th normal posture, propulsion and balance Diagnostic Studies: X-rays of left lower extremi ty: 3 views of left foot: Significant findings include: No acute fractures or dislocations noted. Joint spaces are within normal limits. Relatively rectus foot alignment. X-rays of right lower extremity: 3 views of right foot: Significant findings include: No acute fractures or dislocations noted. Joint spaces are within normal limits. Relatively rectus foot alignment. Lower Extremity DERM: Skin: well hydra nichole , no suspicious lesions, without interdigital maceration, bilateral. Some dry skin with circular lesions noted along the plantar arches. On the dorsal left midfoot, there is a small area of slightly darkened skin. No obvious skin irritation or skin rash noted. No pain with palpation. No open lesion noted. Nails: There is some mild b rown discoloration noted along the medial aspect of the left hallux nail, the distal aspect of the left fourth and fifth toenails, the medial aspect of the right hallux nail and the right fifth toenail. Hyperkeratotic lesions LEFT foot: no sig nificant hpk lesions noted Hyperkeratotic lesions RIGHT foot: no si gnificant hpk lesions noted Progress Notes * Tamar LIMONaDOB:[birth year] (49 yo F)Acc No.[id number]:09/26/2024 Progress Notes Patient: Raine Adkins Provider: Elli Garcia DPM :1975 A ge:48 Y S ex:Female Date:09/26/2024 Address:[address] [place], [place] [address] Pcp:Oleg Jeong MD Subjective: * Chief Complaints: * B /L heel pain * HPI: M A assisting with visit:: Chart Prep [facility]. HPI/Rooming: . ..... P [facility] reason for visit:: Recurrent issue: [age] y/o female RTO c/o recurrent b/l heel pain. Pt was last seen in 10/28 for b/l PF. Suhail winter she reports.. Objective: * Examination: G eneral Examination: Constitutional / Appearance: N o acute distress , Well nourished, Appropriate personal hygiene , No acute distress , Well nourished, Appropriate personal hygiene. Mental status: C ooperative, Oriented to person, place and time, Mood and affect: normal, Judgement and intellect: normal with appropriate response to questions , Cooperative, Oriented to person, place and time, Mood and affect: normal, Judgement and intellect: normal with appropriate response to questions. Shoes today: X XXX , flats . Exam unchanged from prior visit: w ith no significant changes in appearance or condition of feet . L ower Extremity VASCULAR: : Pulses: D P and PT pulses, palpable, bilateral. Temperature gradient: w arm from proximal to distal, bilateral. Pedal hair: p resent, bilateral. Capillary refill at distal toes less than 3 seconds, bilateral. L ower Extremity DERM: : Skin: w ell hydrated , no suspicious lesions, without interdigital maceration, bilateral. Some dry skin with circular lesions noted along the plantar arches. On the dorsal left midfoot, there is a small area of slightly darkened skin. No obvious skin irritation or skin rash noted. No pain with palpation. No open lesion noted.. Nails: T here is some mild brown discoloration noted along the medial aspect of the left hallux nail, the distal aspect of the left fourth and fifth toenails, the medial aspect of the right hallux nail and the right fifth toenail.. Hyperkeratotic lesions LEFT foot: no significant hpk lesions noted. Hyperkeratotic lesions RIGHT foot: no significant hpk lesions noted. L ower Extremity NEURO: : General sensation appears intact, bilateral. Muscle tone within normal limits, bilateral. Monofilament test (10 gram pressure) Exam of 10/27/2021: revealed intact sensation to, entire foot, bilateral. Vibration perception: Exam of 10/28/2021: noted intact per evaluation with 128Hz tuning fork applied to distal hallux compared to ipsilateral medial malleolus @ bilateral feet . L ower Extremity MSK: : Gait Gait unremarkable with normal posture, propulsion and balance. Foot type: Bilateral lower extremity exhibits rectus foot and normal arch height. Muscle strength: 5/5 , all 4 quadrants tested, bilateral. Left lower extremity inspection and palpation: N o palpable masses or nodules noted. No acute pain with palpation of the plantar medial tubercle of the calcaneus or the plantar arch. Negative lateral squeeze test of the calcaneus. No pain with palpation along the Achilles tendon or posterior tibial tendon. Less than 10 degrees of ankle joint dorsiflexion noted with the knee extended, which increases with the knee flexed.. Right lower extremity inspection and palpation: N o palpable masses or nodules noted. No acute pain with palpation of the plantar medial tubercle of the calcaneus or the plantar arch. Negative lateral squeeze test of the calcaneus. No pain with palpation along the Achilles tendon or posterior tibial tendon. Less than 10 degrees of ankle joint dorsiflexion noted with the knee extended, which increases with the knee flexed.. D iagnostic Studies: : X-rays of left lower extremity: 3 views ofleftfoot: Significant findings include: No acute fractures or dislocations noted. Joint spaces are within normal limits. Relatively rectus foot alignment.. X-rays of right lower extremity: 3 views ofrightfoot: Significant findings include: No acute fractures or dislocations noted. Joint spaces are within normal limits. Relatively rectus foot alignment.. * Electronic signature of Kayla Garcia DPM on 07/30/2025 at 03:19 AM MERCHANDISE MANAGER Sign off status: Pending * Provider: Elli Garcia DPM Date: 0 09/26/2024 Generated for Brice alfred/Jeremie/Melissa on: 1 09/30/2024 03:19 AM MERCHANDISE MANAGER
[2025-07-26 14:17] VITALS: BMI 38.8
--- NOTE | 2025-07-26 14:31 | PC.NURSE ---
[facility] has started construction of its new state of the art ER which will open Spring 2026. With this, we anticipate parking may be a challenge for some our surgical patients and families. Parking spaces are limited but are available for all Surgical, obstetrics, and ER patients sharing this lot. If you arrive and find you are having a hard time finding a parking space, please note that we understand the challenges, please drive around the hospital and park near Hospital Entrance 1. When you enter this entrance, you can ask a volunteer to direct or take you back to the surgical waiting area to check in. We appreciate everyone?s understanding of these expected challenges while we build for your future. Report to the Outpatient Waiting Room, entrance under the green pavilion located off [address], at time _1pm_ on date _[phone]_. Planned Procedure Time: _3pm_.? Time changes happen often and if your time is changed the preop area will call you the afternoon before. - You and your visitor will be asked to self-screen and do not enter if you have any COVID symptoms. Please call surgeon if you need to reschedule. - A mask is optional within the hospital at this time. Patients may have clear liquids (water, carbonated beverages, clear teas, apple juice) until 3 hours prior to surgery with a maximum of 20 ounces. - No food from midnight until time of surgery and no smoking, or chewing tobacco (or any form of nicotine). No chewing gum, candy or mints. Take only the following medications with a SIP of water on the morning of surgery: ___Amlodipine, Metoprolol and if needed Albuterol DO NOT STOP ANY OF YOUR OTHER PRESCRIPTION MEDICATIONS PRIOR TO SURGERY EXCEPT THE FOLLOWING Hold all vitamins and supplements for 3 days per anesthesiologist. Medications to discontinue per physician Date to take last dose Please no make-up, nail [place] citizen, hairspray, perfume, deodorant, or body powder the day of surgery.? No jewelry (including any body piercings) or valuables the day of surgery, leave them at home.? Please take a shower or bath the night before, or the morning of, surgery with an antibacterial soap.? Wear comfortable, loose fitting clothing.? - Jewelry must be removed prior to entering the operating room.? Rings and piercings that are not removed may be cut off. - The hospital will not accept responsibility for valuables.? - Please leave all valuables, including medications, at home the day of surgery. If you are going home after surgery, a licensed regional company hazmat tanker driver must drive you home.? - NO public transportation without another adult if you receive anesthesia. - We recommend that an adult stay with you for 24 hours following discharge. - We also recommend that you do not drive, make important decision, drink alcoholic beverages, or take any drugs that were not prescribed by your health care provider for at least 24 hours after your discharge time. Follow any additional instructions given to you from your surgeon. Telephone instructions given to ___Raine__and asked if any additional questions and then verbalized understanding. Patient advised to call surgeon office or pre surgery nurse liaison [phone] if any additional questions.
[2025-07-30] VITALS (8 sets, daily range): BP systolic 101–131; BP diastolic 63–80; PULSE 81–94; RESP 16–20; TEMP 36.3–36.9; O2SAT 98–100
--- OUTSIDE RECORDS SUMMARY | 2025-07-30 03:19 | XMS_ITS | Patient Health Record ---
Author Organization 1 OF Stewart colunga D[facility] Address [address] [place] [address] [place] [address] Care Team Providers Care Draw Bench Operator Name Role Phone Oleg Jeong MD Primary Care Provider Unavail able Alesha Garcia Unavailable [phone] Allergies No Known Allergies Reason For Referral No Information Medications Medication SIG (Take, Route, Frequency, Duration) Notes Start Date End Date Status Albuterol Sulfate HFA 108 (9 0 Base) MCG/ACT Aerosol Solution TAKE 2 PUFFS BY MOUTH EVERY 4 HOURS NEEDED FOR WHEEZING OR SHORTNESS OF BREATH Inhalation; Duration: 30 Active Budesonide-Formoterol Fumarate 160-4.5 MCG/ACT Aerosol TAKE 2 PUFFS BY MOUTH TWICE A DAY Inhalation; Duration: 30 Active Montelukast Sodium 10 MG Tablet TAKE 1 TABLET BY MOUTH EVERYDAY AT BEDTIME Oral; Duration: 90 Active metroNIDAZOLE 500 MG Tablet TAKE 1 TABLE T BY MOUTH TWICE A DAY Oral; Duration: 10 Active Triamcinolone Acetonide 0.1 % Ointment APPLY TO AFFECTED AREA TWICE A DAY External; Duration: 30 Active Cyclobenzaprine HCl 5 MG Tablet Oral; Duration: 15 Active Social History Tobacco Use: Social History Observation Description Date Details (start date - stop date) Never Smoker NA - NA Social History Tobacco Use: Social Info Question Answer Notes Tobacco Use/Smoking Are you a nonsmoker Additional Details Category Social Info Options Details Miscellaneous: Occupation: Works full-ti me Plan Of Treatment No Information Insurance Providers Payer Name Payer Address Payer Phone Subscriber Number Group Number Insured Name Patient Relationship to Insured Coverage Start Date Coverage End Date [facility] [address] [place] [address] [id number] Raine Limon Self - patient is the insured Medical (General) History Medical History History ICD Code Diabetes, Asthma Surgical History Surgery Date(Month/Year)
--- OUTSIDE RECORDS SUMMARY | 2025-07-30 03:19 | XMS_ITS | Encounter Summary ---
Author Organization [facility] Address [address] [place] [address] Care Team Providers Care Java Web Developer Name Role Phone Oleg Jeong MD Primary Care Provider [phone] Encounter Details Date Type Department Care Team ([facility] [address] [facility] Contact Info) Description 06/28/2025 Results Follow-Up [facility] Obstetrical Gynecology [address] [phone] June Bauman MD [address] [address] MRI Pelvis W WO Contrast Social History Tobacco Use Types Packs/Day Years [...] on filedocumented in this encounter Care Teams Java Web Developer Relationship Specialty Start Date End Date Oleg Jeong MD PCP - General 01/07/19 documented as of this encounter
--- OUTSIDE RECORDS SUMMARY | 2025-07-30 03:20 | XMS_ITS | Clinical Summary ---
Author Organization [facility] Address [address] [place] [id number] Care Team Providers Care Speeder Hand Name Role Phone Oleg Plummer MD Primary Care Provider [phone] Allergies Active Allergy Reactions Criticality Noted Date Comments Shellfish Allergy Itching 09/24/2022 Medications aspirin 81 MG chewable tablet Chew 1 tablet (81 mg total) by mouth. Active CPAP MACHINEIndicati ons:LOLY (obstructive sleep apnea),Hyperten fatmata, unspecified type AutoCPAP [id number]. For use when sleeping. Lifetime use. ResMed [...] BREATH 6.7 g 2 02/07/20 25 Active Active Problems Problem Noted Date Diagnosed Date MENENDEZ (dyspnea on exertion) 09/25/2019 Cough 09/25/2019 Wheezing 09/25/2019 Environmental and seasonal allergies 09/25/2019 LOLY (obstructive sleep apnea) 09/25/2019 Hypertension, unspecified type 09/25/2019 Non-seasonal allergic rhinitis, unspecified trig bill 2018 Uncomplicated asthma, unspec ified asthma severity, unspecified whether persistent 2018 Snoring 2018 Encounters Date Type Department Care Team Description 06/19/2025 9:50 AM IT BUSINESS SYSTEMS ANALYST - 06/19/2025 11:59 PM IT BUSINESS SYSTEMS ANALYST Hospital Encounter [facility] [place] [address] Yaron Mays MD Discharge Disposition: Home or Self Care (Routine Discharge) 06/19/2025 8:09 AM IT BUSINESS SYSTEMS ANALYST - 06/19/2025 9:49 AM IT BUSINESS SYSTEMS ANALYST [facility] [address] [place] [address] Kenyon Shoemaker MD Discharge Disposition: Home or Self Care (Routine Discharge) 06/19/2025 Travel 05/16/2025 5:03 PM CDT - 05/16/2025 11:59 PM CDT Hospital Encounter [facility] [address] [place] [address] Oleg Plummer MD Discharge Disposition: Home or Self Care (Routine Discharge) 05/16/2025 Travel 05/07/2025 3:34 PM CDT - 05/07/2025 11:59 PM CDT Hospital Encounter [facility] [place] [address] Oleg Plummer MD Discharge Disposition: Home or Self Care (Routine Discharge) 05/07/2025 Travel 05/02/2025 Telephone [facility] [address] [address] Tarah De La Vega RMA Schedule Test (stress) 05/02/2025 Transcribe Orders [facility] Pre Access Team [address] [place] [address] Oleg Plummer MD from Last 3 Months Immunizations Immunization Administration [...] Years) (1 of 2 - PCV) 12/02/1995 Cervical Cancer Screening Pap with HPV Testing (Age 30 to 64) Every 5 Years 2006 PHQ-2 (Physician Parks) 08/09/2024 COVID-19 Vaccine ( season) 2025 Influenza Adult (#1) 2025 Cervical Cancer Screening Pap Smear (Age 30 to 64) Every 3 Years 11/13/2025 11/13/2022 Cervical Cancer Screening with HPV 11/13/2025 Mammogram Screening 06/08/2027 06/08/2025, 12/08/2024, 05/26/2024, Additional history exists Hepatitis A Vaccines Aged Out No long er eligible based on patient's age to complete this topic Meningococcal B Vaccine Aged Out No l onger eligible based on patient's age to complete this topic Meningococcal Vaccine Aged Out No constantino bill eligible based on patient's age to complete this topic RSV Immunizations Under 20 Months Aged Out No longer eligible based on patient's age to complete this topic Procedures Procedure Name Priority Date/Time Associated Diagnosis Comments US THYROID Routine 06/19/2025 10:16 AM IT BUSINESS SYSTEMS ANALYST Thyroid nodule MRI KNEE LT WO CON Routine 06/19/2025 8: 56 AM IT BUSINESS SYSTEMS ANALYST Derangement of unspecified medial meniscus due to old tear or injury, left knee CT HEART SCREEN CALCIUM SCORE PROMO Routine 05/16/2025 5:22 PM CDT Chest pain, unspecified USE ECHOCARDIOGRAM Routine 05/07/2025 4: 01 PM CDT Chest pain, unspecified type MG SCREENING W ROM GENIE DIGI Routine 05/30/2022 10:42 AM CDT Encounter for screening mammogram for malignant neoplasm of breast from Last 3 Months or Most Recently Relevant to Health Maintenance Results * US THYROID (06/19/2025 10:16 AM IT BUSINESS SYSTEMS ANALYST) Anatomical Region Laterality Modality Neck Ultrasound 06/19/2025 1:19 PM IT BUSINESS SYSTEMS ANALYST Impressions 06/19/2025 1:22 PM IT BUSINESS SYSTEMS ANALYST IMPRESSION: TIRADS assessment of thyroid nodules: Nodule 1, left: ACR TI-RADS TR3. Size: 4.3 cm. Not significantly changed from prior study when measured in a similar fashion. This was previously biopsied on 04/02/2023. Correlate with prior pathology results and follow-up as clinically indicated. Other non-TIRADS findings: None ----- -- ACR TI-RADS recommendations TR5 (?7 points) - FNA if ? 1cm, follow-up annually if ? 0.5 cm TR4 (4-6 points) - FNA if ? 1.5 cm, follow-up at 1, 2, 3, and 5 years if ? 1.0 cm TR3 (3 points)- FNA if ? 2.5cm, follow-up at 1, 3, and 5 years if ? 1.5 cm TR2 (2 points) & TR1 (0 points) - No FNA or follow-up * ACR TI-RADS recommends that no more than two nodules with the highest ACR TI- RADS total point should be biopsied and no more than four nodules should be followed. TI-RADS recommendations are based on TI-RADS level. Management decisions such as whether to perform FNA and whether to follow up a nodule may differ from the TI- RADS recommendation based on clinician judgement, patient preference, risk factors for thyroid cancer, comorbidities, life expectancy and other considerations. Referred By: YARON MAYS Interpreted By: Jose Cleaning MD, 06/19/2025 1:19 PM Narrative 06/19/2025 1:22 PM IT BUSINESS SYSTEMS ANALYST [address] [address] Thyroid Ultrasound Indication: Thyroid nodule Comparison: Thyroid ultrasound 04/21/2024. Technique: Sidhu-scale and color Doppler images of the thyroid gland were obtained. Findings: RIGHT LOBE: The right thyroid lobe is homogenous in background echotexture. The right lobe measures 1.8 x 4.9 x 1.4 cm. Number of nodules which are TI-RADS scored for the right lobe: 0 LEFT LOBE: The left thyroid lobe is homogenous in background echotexture. The left lobe measures 3.4 x 5.3 x 2.3 cm. Number of nodules which are TI-RADS scored for the left lobe: 1 ISTHMUS: The isthmus measures 0.3 cm in thickness. Number of nodules which are TI-RADS scored for the isthmus: 0 Lymph nodes: No suspicious cervical adenopathy. Nodule 1: - Size: 3.4 x 2.1 x 4.3 cm, previously measured 3.3 x 2.3 x 4.2 cm. Not significantly changed when measured in a similar fashion. - Location: left mid thyroid. - Composition: mixed cystic and solid (1) - Echogenicity: Heterogeneous with isoechoic and hypoechoic components (2) - Shape: [id number] (0) - Margins: smooth (0) - Echogenic foci: none (0) ACR TI-RADS total points: 3 ACR TI-RADS category: TR3 Procedure Note Jose Cleaning MD - 06/19/[address] [address] Thyroid Ultrasound Indication: Thyroid nodule Comparison: Thyroid ultrasound 04/21/2024. Technique: Sidhu-scale and color Doppler images of the thyroid gland wereobtained. Findings: RIGHT LOBE: The right thyroid lobe is homogenous in background echotexture. The rightlobe measures 1.8 x 4.9 x 1.4 cm. Number of nodules which are TI-RADSscored for the right lobe: 0 LEFT LOBE: The left thyroid lobe is homogenous in background echotexture. The leftlobe measures 3.4 x 5.3 x 2.3 cm. Number of nodules which are TI-RADSscored for the left lobe: 1 ISTHMUS: The isthmus measures 0.3 cm in thickness. Number of nodules which areTI-RADS scored for the isthmus: 0 Lymph nodes: No suspicious cervical adenopathy. Nodule 1: - Size: 3.4 x 2.1 x 4.3 cm, previously measured 3.3 x 2.3 x 4.2 cm. Notsignificantly changed when measured in a similar fashion. - Location: left mid thyroid. - Composition: mixed cystic and solid (1) - Echogenicity: Heterogeneous with isoechoic and hypoechoic components(2) - Shape: [id number] (0) - Margins: smooth (0) - Echogenic foci: none (0) ACR TI-RADS total points: 3 ACR TI-RADS category: TR3 IMPRESSION: TIRADS assessment of thyroid nodules: Nodule 1, left: ACR TI-RADS TR3. Size: 4.3 cm. Not significantlychanged from prior study when measured in a similar fashion. This waspreviously biopsied on 04/02/2023. Correlate with prior pathology resultsand follow-up as clinically indicated. Other non-TIRADS findings: None ----- -- ACR TI-RADS recommendations TR5 (?7 points) - FNA if ? 1cm, follow-up annually if ? 0.5 cm TR4 (4-6 points) - FNA if ? 1.5 cm, follow-up at 1, 2, 3, and 5 years if ?1.0 cm TR3 (3 points)- FNA if ? 2.5cm, follow-up at 1, 3, and 5 years if ? 1.5 cm TR2 (2 points) & TR1 (0 points) - No FNA or follow-up * ACR TI-RADS recommends that no more than two nodules with the highestACR TI- RADS total point should be biopsied and no more than four nodulesshould be followed. TI-RADS recommendations are based on TI-RADS level. Managementdecisions such as whether to perform FNA and whether to follow up a nodulemay differ from the TI- RADS recommendation based on clinician judgement,patient preference, risk factors for thyroid cancer, comorbidities, lifeexpectancy and other considerations. Referred By: YARON MAYS Interpreted By: Jose Cleaning MD, 06/19/2025 1:19 PM us Yaron Mays MD ULTRASOUND Final Result * MRI KNEE LT WO CON (06/19/2025 8:56 AM IT BUSINESS SYSTEMS ANALYST) Anatomical Region Laterality Modality Knee Magnetic Resonan ce 06/19/2025 2:48 PM IT BUSINESS SYSTEMS ANALYST Impressions 06/19/2025 2:56 PM IT BUSINESS SYSTEMS ANALYST IMPRESSION: 1. Large bucket-handle tear involving the body and posterior horn of the lateral meniscus with meniscal tissue flipped anteriorly. 2. Low-grade sprain of the proximal fibers of the medial collateral ligament but no fluid-filled tear is seen. 3. Large joint effusion. 4. Multifocal articular cartilage degeneration as above. Referred By: KENYON SHOEMAKER Interpreted By: Alon Morocho DO, 06/19/2025 2:48 PM Narrative 06/19/2025 2:56 PM IT BUSINESS SYSTEMS ANALYST [address] [address] MRI of the left knee without contrast Exam Date: 06/19/2025 8:17 AM History: Derangement. Chronic left knee pain with stiffness, popping, swelling, and limited range of motion that has gotten progressively worse without known injury. Comparison Studies: Left knee radiographs 06/19/2024. TECHNIQUE: Multiplanar, multisequence MR imaging of the left knee was performed without intravenous contrast. FINDINGS: * Menisci: The medial meniscus is intact without evidence to suggest fluid-filled tear.. There is abnormal appearance of the lateral meniscus with marked truncation of the body and less extensive truncation of the posterior horn of the lateral meniscus suggesting a large bucket-handle tear with meniscal tissue flipped anteriorly. * Ligaments: The anterior and posterior cruciate ligaments are intact. There is mild thickening and increased signal intensity of the proximal fibers of the medial collateral ligament with associated periligamentous edema suggesting a low-grade sprain but no fluid-filled tear is seen. The iliotibial band, lateral collateral ligament proper, biceps femoris tendon, and popliteus tendon are intact. * Extensor Mechanism: The distal quadriceps and patellar tendons are intact. No evidence is seen to suggest gross disruption of the medial or lateral patellar retinacula. * Joint: There is a large joint effusion. No discrete intra-articular body is seen. * Articular Cartilage: There is full-thickness loss of articular cartilage along the central weightbearing zone of the medial femoral condyle and anterior weightbearing zone of the medial tibial plateau with moderate articular cartilage degeneration involving the remainder of the weightbearing surfaces of the medial femoral condyle and medial tibial plateau. There is severe articular cartilage degeneration along the central weightbearing zone of the lateral tibial plateau and moderate thinning of articular cartilage along the anterior weightbearing zone of the lateral femoral condyle. There is a mild fissuring of articular cartilage along the lateral patellar facet, most prominent inferiorly. There is also mild articular cartilage degeneration along the femoral trochlea. * Miscellaneous: No marrow signal abnormality is seen to suggest acute fracture or contusion. Procedure Note Alon Morocho DO - 06/19/2025 [id number] [place] [address] MRI of the left knee without contrast Exam Date: 06/19/2025 8:17 AM History: Derangement. Chronic left knee pain with stiffness, popping,swelling, and limited range of motion that has gotten progressively worsewithout known injury. Comparison Studies: Left knee radiographs 06/19/2024. TECHNIQUE: Multiplanar, multisequence MR imaging of the left knee wasperformed without intravenous contrast. FINDINGS: * Menisci: The medial meniscus is intact without evidence to suggestfluid-filled tear.. There is abnormal appearance of the lateral meniscuswith marked truncation of the body and less extensive truncation of theposterior horn of the lateral meniscus suggesting a large bucket-handletear with meniscal tissue flipped anteriorly. * Ligaments: The anterior and posterior cruciate ligaments are intact.There is mild thickening and increased signal intensity of the proximalfibers of the medial collateral ligament with associated periligamentousedema suggesting a low-grade sprain but no fluid-filled tear is seen. Theiliotibial band, lateral collateral ligament proper, biceps femoristendon, and popliteus tendon are intact. * Extensor Mechanism: The distal quadriceps and patellar tendons areintact. No evidence is seen to suggest gross disruption of the medial orlateral patellar retinacula. * Joint: There is a large joint effusion. No discrete intra-articularbody is seen. * Articular Cartilage: There is full-thickness loss of articularcartilage along the central weightbearing zone of the medial femoralcondyle and anterior weightbearing zone of the medial tibial plateau withmoderate articular cartilage degeneration involving the remainder of theweightbearing surfaces of the medial femoral condyle and medial tibialplateau. There is severe articular cartilage degeneration along thecentral weightbearing zone of the lateral tibial plateau and moderatethinning of articular cartilage along the anterior weightbearing zone ofthe lateral femoral condyle. There is a mild fissuring of articularcartilage along the lateral patellar facet, most prominent inferiorly.There is also mild articular cartilage degeneration along the femoraltrochlea. * Miscellaneous: No marrow signal abnormality is seen to suggest acutefracture or contusion. IMPRESSION: 1. Large bucket-handle tear involving the body and posterior horn of thelateral meniscus with meniscal tissue flipped anteriorly. 2. Low-grade sprain of the proximal fibers of the medial collateralligament but no fluid-filled tear is seen. 3. Large joint effusion. 4. Multifocal articular cartilage degeneration as above. Referred By: KENYON SHOEMAKER Interpreted By: Alon Morocho DO, 06/19/2025 2:48 PM us Kenyon Shoemaker MD MRI Final Resul t * CT HEART SCREEN CALCIUM SCORE PROMO (05/16/2025 5:22 PM CDT) Anatomical Region Laterality Modality Chest Computed Tomogra phy 05/16/2025 5:53 PM CDT Impressions 05/16/2025 5:53 PM CDT IMPRESSION: Total Cardiac Calcium Score: 0 - a negative examination. No identifiable atherosclerotic plaque. This implies a very low, generally less than 5% risk of coronary artery disease. Ordered By: OLEG PLUMMER Interpreted By: Daniel Puente, 05/16/2025 5:53 PM Narrative 05/16/2025 5:53 [place] [address] EXAMINATION: CT HEART SCREEN CALCIUM SCORE PROMO INDICATIONS: Chest pain, unspecified TECHNIQUE: Multislice helical CT images of the proximal coronary arteries with a computer generated calcification score. Automated exposure control was utilized for dose reduction. FINDINGS: Calcium scoring: Right Coronary: 0 Left Main: 0 Left Anterior Descendin Left Circumflex: 0 Total Score: 0 Extra coronary findings: Heart size is normal. No pericardial effusion. The aorta is normal in caliber. The central airways are patent without endobronchial lesion. No mediastinal or bulky hilar adenopathy. The visualized lungs are clear without consolidation, effusion, or suspicious pulmonary nodule. No suspicious visceral lesion, adenopathy, or ascites within visualized upper abdomen. No acute or aggressive osseous abnormality. Calcium score guidelines: Total Score* Calcium Plaque [place] *Risk *Probability of significant CAD 0 No Plaque Very Low Very unlikely 1-10 Minimal Plaque Low Unlikely 11-100 Mild Plaque Moderate Low likelihood of significant stenosis <50% 101-400 Moderate Plaque Moderately High Moderate likelihood of significant stenosis (>50%) Over 400 Extensive Plaque High High likelihood of significant stenosis (>50%) The amount of coronary artery calcification correlates with the severity of coronary atherosclerosis and the probability of future significant event. Calcification is not site specific for stenosis and does not identify non-calcified atherosclerotic plaque, but rather indicates the extent of atherosclerosis in the coronary arteries overall. The score may be used as an indicator for risk factor modification or additional cardiac testing. Significant change in calcium score over time may be indicative of subsequent disease development or useful as a benchmark to assess preventative programs. Procedure Note Daniel Puente MD - 05/16/2025 [address] [place] [address] EXAMINATION: CT HEART SCREEN CALCIUM SCORE PROMO INDICATIONS: Chest pain, unspecified TECHNIQUE: Multislice helical CT images of the proximal coronary arterieswith a computer generated calcification score. Automated exposure controlwas utilized for dose reduction. FINDINGS: Calcium scoring: Right Coronary: 0 Left Main: 0 Left Anterior Descendin Left Circumflex: 0 Total Score: 0 Extra coronary findings: Heart size is normal. No pericardial effusion. The aorta is normal in caliber. The central airways are patent without endobronchial lesion. No mediastinal or bulky hilar adenopathy. The visualized lungs are clear without consolidation, effusion, orsuspicious pulmonary nodule. No suspicious visceral lesion, adenopathy, or ascites within visualizedupper abdomen. No acute or aggressive osseous abnormality. Calcium score guidelines: Total Score* Calcium Plaque [place] *Risk *Probability ofsignificant CAD 0 No Plaque Very LowVery unlikely 1-10 Minimal Plaque LowUnlikely 11-100 Mild Plaque ModerateLow likelihood of significant stenosis <50% 101-400 Moderate Plaque Moderately HighModerate likelihood of significant stenosis (>50%) Over 400 Extensive Plaque HighHigh likelihood of significant stenosis (>50%) The amount of coronary artery calcification correlates with the severityof coronary atherosclerosis and the probability of future significantevent. Calcification is not site specific for stenosis and does not identify non- calcifiedatherosclerotic plaque, but rather indicates the extent of atherosclerosisin the coronary arteries overall. The score may be used as an indicator for risk factor modification oradditional cardiac testing. Significant change in calcium score over timemay be indicative of subsequent disease development or useful as a benchmark to assess preventativeprograms. IMPRESSION: Total Cardiac Calcium Score: 0 - a negative examination. No identifiableatherosclerotic plaque. This implies a very low, generally less than 5%risk of coronary artery disease. Ordered By: OLEG PLUMMER Interpreted By: Daniel Puente, 05/16/2025 5:53 PM us Oleg Plummer MD CT Final Result * USE ECHOCARDIOGRAM (05/07/2025 4:01 PM CDT) Anatomical Region Laterality Modality Cardiac Echocardiogram 05/07/2025 3:44 PM CDT Narrative 05/09/2025 2:29 PM CDT Echocardiography Report Pat.Name: MARQUEZ LIMON Pat.ID: [id number] .Date: 05/07/2025 Exam Time: 3:44:00 PM Study Type:ECHO WITH CARDIAC DOPPLER COMP Height: 62 in Weight: 205 lb BSA: 1.93 m2 Age: 4 1975,49Y Sex: F BP: 144/99 HR: 89 bpm Sonogrphr: Jada RIVERA Pat. Stat.:Outpatient CPT - 4: [id number] Reason for Study:Chest pain Procedures: 2D, M-mode, Doppler, Color Flow, The study quality is technically adequate. Race: B ++++++++++++++++++++++++++++++++++++ SUMMARY: ++++++++++++++++++++++++++++++++++++ Left ventricle is normal in size and systolic function Estimated EF of 60-65% Mild LVH Diastolic dysfunction. Right ventricle is normal in size and systolic function No significant valve dysfunction Unable to estimate pulmonary pressures. ++++++++++++++++++++++++++++++++++++ FINDINGS: ++++++++++++++++++++++++++++++++++++ LV: The left ventricular size is normal. The left ventricular systolic function is normal. Estimated left ventricular ejection fraction is 60-65%. Mild concentric left ventricular hypertrophy. The septal E/e' is indeterminate at 8-15. The lateral E/e' is normal at <8. Left ventricular diastolic function is abnormal (grade 1 - impaired relaxation). The mean left atrial pressure is normal. WM: Wall motion appears normal in all segments. RV: The right ventricular size is normal. Right ventricular systolic function is normal. TAPSE = 22.9mm (<16 mm indicates systolic RV dysfunction). IVS: Intraventricular septum is normal. LA: The left atrial volume is normal ( less than 34 ml/M2). RA: Right atrial size is normal. IAS: Atrial septum is normal. SOCO: No evidence of pericardial effusion. AO: Normal aortic root. PA: Estimated right atrial pressure of 3 mmHg. SVn: Inferior vena cava is normal. Inferior vena cava shows >50% collapse with respiration consistent with normal right atrial pressure. AV: The aortic valve is trileaflet. No evidence of aortic valve stenosis. No evidence of aortic valve regurgitation. MV: Structurally normal mitral valve. No evidence of mitral regurgitation. No evidence of mitral stenosis. PV: Pulmonic valve not well visualized. TV: Structurally normal tricuspid valve. No evidence of tricuspid regurgitation. No evidence of tricuspid valve stenosis. ++++++++++++++++++++++++++++++++++++ MEASUREMENTS: ++++++++++++++++++++++++++++++++++++ DOPPLER Pulmonary Veins PVnpkVeld 33 cm/s AR-wave velocit 0.27 m/s S1-wave velocit 0.44 m/s PVn A Dur 0.09 second TV Forward Flow TV E/A 1.06 Aortic Valve Cardiovascular 2.28 cm Aortic Root Aakash 3.1 cm LVOT/AoV (VEHICLE FUEL SYSTEMS CONVERTER) ( 0.82 Left atrial aakash 3.83 cm AV Antegrade Flow Peak Velocity ( 1.24 m/s Mean Velocity ( 0.86 m/s Velocity Time I 24.4 cm AV Antegrade Flow Simplified Bernoulli Gradient pressu 6.1 mmHg Gradient pressu 3.2 mmHg AV Continuity Equation by Velocity Time Integral Aortic Valve Ar 3.67 cm2 AoV Area Index 1.9 Left Ventricle Stroke Volume ( 89.7 ml Cardiac Output 7.18 liter per minute LV Antegrade Flow Peak Velocity ( 1.02 m/s Mean Velocity ( 0.71 m/s Velocity Time I 22 cm LV Antegrade Flow Simplified Bernoulli Gradient pressu 4.1 mmHg Gradient pressu 2.3 mmHg Mitral Valve Mitral Valve E- 0.15 second Mitral Valve E 0.9 Myocardial Velo 10 centimeter/second Mean Myocardial 8.7 centimeter/second Myocardial Velo 7.3 centimeter/second Ratio of Mitral 8.79 Myocardial Velo 8.3 centimeter/second Ratio of Mitral 7.65 Myocardial Velo 10.4 centimeter/second Ratio of Mitral 10.5 Isovelocity rel 0.08 second Mean Myocardial 9.4 centimeter/second MV Antegrade Flow Mitral Valve E- 0.77 m/s Mitral Valve A- 0.85 m/s PV Antegrade Flow Peak Velocity ( 0.72 m/s Mean Velocity ( 0.49 m/s Velocity Time I 13.1 cm PV Antegrade Flow Simplified Bernoulli Gradient pressu 2.1 mmHg Gradient pressu 1.1 mmHg Tricuspid Valve Tricuspid Valve 0.6 m/s Tricuspid Valve 0.57 m/s 2D Left Ventricle LVIDd 3.85 cm (3.6-5.2) LVEDV BP 62.8 ml LV EDV 56.1 ml LVESV BP 23.3 ml LV ESV 19.1 ml LV EF 66 % LV EDV 66.1 ml Left Ventricula -12.5 % LV ESV 29.1 ml LV EF 56 % LV EF BP 62.9 % Left Ventricula -14.2 % Left Ventricula -13.4 % Left Atrium Left Atrium Vol 27.8 ml/m2 LA Biplane Left Atrium Vol 53.6 ml LA Single Plane Left Atrium nessa 5.62 cm Left Atrium nessa 4.87 cm Left Atrium Vol 48.3 ml Left Atrium Vol 51.7 ml LV Teichholz Interventricula 1.74 cm Left Ventricle 2.91 cm Left Ventricle 1.13 cm Heart rate 87 Heart beat per minute Right Atrium RA sys Area 14.6 cm2 Right Ventricle Right Ventricul 3.55 cm RVIDd 3.61 cm MMODE Tricuspid Valve Tricuspid annul 2.29 cm <Electronic Signature> 05/09/2025 02:29 PM Alfa Kaminski M.D. Procedure Note Alfa Kaminski MD - 05/09/2025 Echocardiography Report Pat.Name: MARQUEZ LIMON Pat.ID: [id number] .Date: 05/07/2025 Exam Time: 3:44:00 PM Study Type:ECHO WITH CARDIAC DOPPLER COMP Height: 62 in Weight: 205 lb BSA: 1.93 m2 Age: 4 1975,49Y Sex: F BP: 144/99 HR: 89 bpm Sonogrphr: Jada RIVERA Pat. Stat.:Outpatient CPT - 4: [id number] Reason for Study:Chest pain Procedures: 2D, M-mode, Doppler, Color Flow, The study quality is technically adequate. Race: B ++++++++++++++++++++++++++++++++++++ SUMMARY: ++++++++++++++++++++++++++++++++++++ Left ventricle is normal in size and systolic function Estimated EF of 60-65% Mild LVH Diastolic dysfunction. Right ventricle is normal in size and systolic function No significant valve dysfunction Unable to estimate pulmonary pressures. ++++++++++++++++++++++++++++++++++++ FINDINGS: ++++++++++++++++++++++++++++++++++++ LV: The left ventricular size is normal. The left ventricular systolic function is normal. Estimated left ventricular ejection fraction is 60-65%. Mild concentric left ventricular hypertrophy. The septal E/e' is indeterminate at 8-15. The lateral E/e' is normal at <8. Left ventricular diastolic function is abnormal (grade 1 - impaired relaxation). The mean left atrial pressure is normal. WM: Wall motion appears normal in all segments. RV: The right ventricular size is normal. Right ventricular systolic function is normal. TAPSE = 22.9mm (<16 mm indicates systolic RV dysfunction). IVS: Intraventricular septum is normal. LA: The left atrial volume is normal ( less than 34 ml/M2). RA: Right atrial size is normal. IAS: Atrial septum is normal. SOCO: No evidence of pericardial effusion. AO: Normal aortic root. PA: Estimated right atrial pressure of 3 mmHg. SVn: Inferior vena cava is normal. Inferior vena cava shows >50% collapse with respiration consistent with normal right atrial pressure. AV: The aortic valve is trileaflet. No evidence of aortic valve stenosis. No evidence of aortic valve regurgitation. MV: Structurally normal mitral valve. No evidence of mitral regurgitation. No evidence of mitral stenosis. PV: Pulmonic valve not well visualized. TV: Structurally normal tricuspid valve. No evidence of tricuspid regurgitation. No evidence of tricuspid valve stenosis. ++++++++++++++++++++++++++++++++++++ MEASUREMENTS: ++++++++++++++++++++++++++++++++++++ DOPPLER Pulmonary Veins PVnpkVeld 33 cm/s AR-wave velocit 0.27 m/s S1-wave velocit 0.44 m/s PVn A Dur 0.09 second TV Forward Flow TV E/A 1.06 Aortic Valve Cardiovascular 2.28 cm Aortic Root Aakash 3.1 cm LVOT/AoV (VEHICLE FUEL SYSTEMS CONVERTER) ( 0.82 Left atrial aakash 3.83 cm AV Antegrade Flow Peak Velocity ( 1.24 m/s Mean Velocity ( 0.86 m/s Velocity Time I 24.4 cm AV Antegrade Flow Simplified Bernoulli Gradient pressu 6.1 mmHg Gradient pressu 3.2 mmHg AV Continuity Equation by Velocity Time Integral Aortic Valve Ar 3.67 cm2 AoV Area Index 1.9 Left Ventricle Stroke Volume ( 89.7 ml Cardiac Output 7.18 liter per minute LV Antegrade Flow Peak Velocity ( 1.02 m/s Mean Velocity ( 0.71 m/s Velocity Time I 22 cm LV Antegrade Flow Simplified Bernoulli Gradient pressu 4.1 mmHg Gradient pressu 2.3 mmHg Mitral Valve Mitral Valve E- 0.15 second Mitral Valve E 0.9 Myocardial Velo 10 centimeter/second Mean Myocardial 8.7 centimeter/second Myocardial Velo 7.3 centimeter/second Ratio of Mitral 8.79 Myocardial Velo 8.3 centimeter/second Ratio of Mitral 7.65 Myocardial Velo 10.4 centimeter/second Ratio of Mitral 10.5 Isovelocity rel 0.08 second Mean Myocardial 9.4 centimeter/second MV Antegrade Flow Mitral Valve E- 0.77 m/s Mitral Valve A- 0.85 m/s PV Antegrade Flow Peak Velocity ( 0.72 m/s Mean Velocity ( 0.49 m/s Velocity Time I 13.1 cm PV Antegrade Flow Simplified Bernoulli Gradient pressu 2.1 mmHg Gradient pressu 1.1 mmHg Tricuspid Valve Tricuspid Valve 0.6 m/s Tricuspid Valve 0.57 m/s 2D Left Ventricle LVIDd 3.85 cm (3.6-5.2) LVEDV BP 62.8 ml LV EDV 56.1 ml LVESV BP 23.3 ml LV ESV 19.1 ml LV EF 66 % LV EDV 66.1 ml Left Ventricula -12.5 % LV ESV 29.1 ml LV EF 56 % LV EF BP 62.9 % Left Ventricula -14.2 % Left Ventricula -13.4 % Left Atrium Left Atrium Vol 27.8 ml/m2 LA Biplane Left Atrium Vol 53.6 ml LA Single Plane Left Atrium nessa 5.62 cm Left Atrium nessa 4.87 cm Left Atrium Vol 48.3 ml Left Atrium Vol 51.7 ml LV Teichholz Interventricula 1.74 cm Left Ventricle 2.91 cm Left Ventricle 1.13 cm Heart rate 87 Heart beat per minute Right Atrium RA sys Area 14.6 cm2 Right Ventricle Right Ventricul 3.55 cm RVIDd 3.61 cm MMODE Tricuspid Valve Tricuspid annul 2.29 cm <Electronic Signature> 05/09/2025 02:29 PM Alfa Kaminski M.D. Oleg Plummer MD ECHO Final Result from Last 3 Months Insurance Care Teams Speeder Hand Relationship Specialty Start Date End Date Oleg Plummer MD PCP - General 03/24/13
--- OUTSIDE RECORDS SUMMARY | 2025-07-30 03:20 | XMS_ITS | Encounter Summary ---
Author Organization [facility] Address [address] [place] [address] Care Team Providers Care Ends Breakage Clerk Name Role Phone Oleg Jeong MD Primary Care Provider [phone] Encounter Details Date Type Department Care Team (Late st Contact Info) Description 02/03/2023 MyChart Message Enc [facility] [address] [place], [place] [id number] [employer] Provider Air Quality Message Social History [...] documented as of this encounter Care Teams Ends Breakage Clerk Relationship Specialty Start Date End Date Oleg Jeong MD PCP - General 03/24/13 documented as of this encounter
--- OUTSIDE RECORDS SUMMARY | 2025-07-30 03:20 | XMS_ITS | Clinical Summary ---
Author Organization [facility] Address [address] [place] [address] Care Team Providers Care Combination Machine Tool Setter Name Role Phone Oleg Jeong MD Primary Care Provider [phone] Allergies Active Allergy Reactions Criticality Noted Date Comments Shellfish Containing Products Itching Low 2020 Medications albuterol HFA (PROVENTIL HFA,VENTOLIN HFA,PROAIR HFA) 90 mcg/actuation inhaler TAKE 2 PUFFS BY MOUTH EVERY 4 HOURS NEEDED FOR WHEEZING OR SHORTNESS OF BREATH 11/26/19 21 Active aspirin 81 mg chewable tablet Take 1 tablet (81 mg total) by mouth Active budesonide-formot Ranjith (SYMBICORT) 160-4.5 mcg/actuation inhaler Inhale 2 puffs [...] 3 TIMES A DAY NEEDED WITH FOOD Active latanoprost (XALATAN) 0.005 % ophthalmic solution 1 [...] (10 mg total) by mouth daily Active sulfamethoxazole- trimethoprim (BACTRIM DS) 800-160 mg per tablet Take [...] by mouth daily 30 tablet 02/03/20 25 Active norethindrone (MICRONOR) 0.35 mg tabletIndications : Contraception Take 1 tablet (0.35 mg total) by mouth daily 28 tablet 12 06/22/20 25 026 Active Active Problems Problem Noted Date Diagnosed Date Anxiety 11/13/2022 Obesity 11/13/2022 Abnormal uterine bleeding 12/15/2020 LOLY (obstructive sleep apnea) 09/25/2019 Hypertension 09/25/2019 Uncomplicated asthma 2018 Snoring 2018 Non-seasonal allergic rhinitis 2018 Migraine 08/28/2016 Encounters Date Type Department Care Team Description 06/28/2025 Results Follow-Up [facility] Obstetrical Gynecology [address] [place] [phone] June Bauman MD MRI Pelvis W WO Contrast 06/25/2025 6:04 PM JOB INTERVIEWER - 06/25/2025 11:59 PM JOB INTERVIEWER Hospital Encounter [facility] MRI [address] [place] [address] Abnormal uterine bleeding; Fibroid Discharge Disposition: Discharge to home or self care 06/22/2025 Orders Only [facility] Obstetrical Gynecology [address] [place] [phone] June Bauman MD 06/08/2025 3:59 PM CDT - 06/08/2025 11:59 PM CDT Hospital Encounter [facility] [address] [address] Screening mammogram, encounter for Discharge Disposition: Discharge to home or self care 05/21/2025 Orders Only [facility] Obstetrical Gynecology [address] [place] [address] [place] [phone] June Bauman MD Abnormal uterine bleeding (Primary Dx); Fibroid 05/02/2025 Results Follow-Up [facility] Obstetrical Gynecology [address] [place] [phone] June Bauman MD Dexa Axial Skeleton Bone Density 1 Or 2 Site 05/01/2025 3:25 PM CDT - 05/01/2025 11:59 PM CDT Hospital Encounter [facility] [address] [address] Low bone mass Discharge Disposition: Discharge to home or self [...] - - Weight 93 kg (205 lb) 06/08/2025 4:10 PM CDT Height 157.5 cm (5' 2.01) 06/08/2025 4:10 PM CD T Body Mass Index 37.49 06/08/2025 4:10 PM CDT Plan of Treatment Health Maintenance Due Date Last Done Comments Colon Cancer Screening-Colonoscopy 1975 Depression Screening 1975 DTaP/Tdap/Td Vaccine (6 - Tdap) 05/31/1991 05/30/1991, 10/22/1981, 03/30/1980, Additional history exists Hepatitis B Screening 1994 Pneumococcal vaccine <65 (1 of 2 - PCV) 12/02/1995 Cervical Cancer Screening 04/13/2024 04/13/2023, 12/2022 Influenza Vaccine (#1) 2025 Regular Well Visit/Exam 18-64 07/28/2025 07/28/2024, 04/13/2023 Breast Cancer Screening-Mammogram 06/08/2026 06/08/2025, 05/26/2024, 05/17/2023, Additional history exists Hepatitis C Screening Completed 08/10/2024, 023 Medical Devices Implanted Type Area Engagement Liaison Device Identifier Shelf Expiration Date Model / Serial / Lot [employer] Eviva 13cm Identifier Biopsy Site [id number] - [id number] Implanted:Qty: 1 on 06/30/2023 at [facility] Left: Breast [employer] [facility] [id number] 02/03/2024 ABEBE VA-13 / / [id number] Procedures Procedure Name Priority Date/Time Associated Diagnosis Comments MRI PELVIS W WO CONTRAST Schedule Routine, Read Routine (OP Routine) 06/25/2025 6:53 PM JOB INTERVIEWER Abnormal uterine bleeding Fibroid SCREENING MAMMOGRAM BILATERAL W JENS Schedule Routine, Read Routine (OP Routine) 06/08/2025 4:11 PM CDT Screening mammogram, encounter for DEXA AXIAL SKELETON BONE DENSITY 1 OR MORE SITES Schedule Routine, Read Routine (OP Routine) 05/01/2025 3:51 PM CDT Low bone mass HEPATITIS C ANTIBODY Routine 08/10/2024 12:40 PM JOB INTERVIEWER Well woman exam HIGH RISK HPV DNA DETECTION WITH GENOTYPING Routine 04/13/2023 12:34 PM CDT Well woman exam from Last 3 Months or Most Recently Relevant to Health Maintenance Results * MRI Pelvis W WO Contrast (06/25/2025 6:53 PM JOB INTERVIEWER) Anatomical Region Laterality Modality Pelvis N/A Magnetic Resonan ce 06/27/2025 2:41 PM JOB INTERVIEWER Impressions 06/27/2025 2:41 PM JOB INTERVIEWER 1. Multiple uterine fibroids, most of which are less than 1 cm in size. There is a dominant lesion, however, measuring up to 5.6 cm, as above. Electronically signed by: Marisol Ac MD Narrative 06/27/2025 2:41 PM JOB INTERVIEWER EXAMINATION: MR Pelvis without and with contrast CLINICAL HISTORY: Uterine fibroids. COMPARISON: None. TECHNIQUE: Multiplanar, multiweighted images of the pelvis were obtained both before and after the administration of intravenous contrast. FINDINGS: Pelvis Bladder: Normal in appearance. Uterus: There are multiple uterine fibroids. Most of these are less than 1 cm in size. However, there is a dominant lesion towards the fundus in the anterior myometrium measuring approximately 5 x 5.6 x 5.4 cm. It is likely intramural in location but exerts mass effect upon the endometrial cavity which is displaced inferiorly and posteriorly. This lesion enhances heterogeneously with contrast. Adnexa: The ovaries are very small but normal in appearance. There is a small amount of physiologic free fluid in the pelvis. Bowel and Mesentery: The visualized bowel is normal in caliber. There is no obstruction. Extraperitoneal, lymph nodes, vessels: There is no pelvic lymphadenopathy. Procedure Note Marisol Ac MD - 06/27/2025 EXAMINATION: MR Pelvis without and with contrast CLINICAL HISTORY: Uterine fibroids. COMPARISON: None. TECHNIQUE: Multiplanar, multiweighted images of the pelvis were obtained both before and after the administration of intravenous contrast. FINDINGS: Pelvis Bladder: Normal in appearance. Uterus: There are multiple uterine fibroids. Most of these are less than 1 cm in size. However, there is a dominant lesion towards the fundus in the anterior myometrium measuring approximately 5 x 5.6 x 5.4 cm. It is likely intramural in location but exerts mass effect upon the endometrial cavity which is displaced inferiorly and posteriorly. This lesion enhances heterogeneously with contrast. Adnexa: The ovaries are very small but normal in appearance. There is a small amount of physiologic free fluid in the pelvis. Bowel and Mesentery: The visualized bowel is normal in caliber. There is no obstruction. Extraperitoneal, lymph nodes, vessels: There is no pelvic lymphadenopathy. IMPRESSION: 1. Multiple uterine fibroids, most of which are less than 1 cm in size. There is a dominant lesion, however, measuring up to 5.6 cm, as above. Electronically signed by: Marisol Ac MD us June Bamuan MD IM MRI PROCEDURES Final R esult * Screening Mammogram Bilateral W Jens (06/08/2025 4:11 PM CDT) Anatomical Region Laterality Modality Breast Bilateral Mammography Impressions 06/08/2025 4:42 PM CDT Bilateral No evidence of malignancy in either breast. OVERALL BI-RADS FINAL ASSESSMENT: 2 - Benign RECOMMENDATION: Recommend bilateral annual screening mammography. Narrative 06/08/2025 4:42 PM CDT EXAMINATION: Screening Mammogram Bilateral W Jens: 06/08/2025 COMPARISON: Relevant prior studies available at the time of interpretation were reviewed, including the most recent mammogram on: 12/08/2024. TECHNIQUE: Mammography was performed with 2D and 3D digital breast tomosynthesis (DBT) images. CAD was utilized. BREAST PARENCHYMAL COMPOSITION: There are scattered areas of fibroglandular density. FINDINGS: Bilateral There is no suspicious mass, calcification, or architectural distortion in either breast. There is a stable left breast cyst. There are two biopsy marker clips in the left breast. us Self Screening Mammogram IMG MAMMO PROCEDURES Fi nal Result * Dexa Axial Skeleton Bone Density 1 Or 2 Site (05/01/2025 3:51 PM CDT) Anatomical Region Laterality Modality Body N/A Mammography 05/02/2025 12:1 3 AM CDT Narrative 05/02/2025 12:15 AM CDT EXAM DESCRIPTION: DEXA AXIAL SKELETON BONE DENSITY 1 OR MORE SITES REASON FOR STUDY: 49 y/o year old F with given history of: low bone mass Engagement Liaison/Model: [email or web address] A (S/N [id number]) Facility LSC value of 0.022 for the AP spine, 0.027 for the femur, and 0.023 for the forearm. CLINICAL INFORMATION: Current height: 62 inches Maximum height: 62 inches Weight: 205 pounds Risk factors: Asthma or emphysema COMPARISON: 12/31/2022 Dissimilar scan types or analysis methods precludes assessment for calculating a significant change. FINDINGS: AP LUMBAR SPINE L1-L4: Total BMD is 1.045 g/cm2 T-score is -1.0 LEFT HIP: Total BMD is 1.010 g/cm2 T-score is -0.1 Femoral neck BMD is 0.856 g/cm2 T-score is -0.7 FRAX: FRAX not reported due to T-scores of hip, femoral neck and/or spine being at or above -1.0 (Normal). IMPRESSION: 1. Normal bone mass. REFERENCE: Bone mineral density: T-Score: Normal (T-score above or = -1.0) Low bone mass (T-score between -1.0 and -2.5) replaces the previously used term osteopenia Osteoporosis (T-score = or below -2.5) Z-Score: Within the expected range for age (Z-score above -2.0) Below the expected range for age (Z-score is -2.0 or below) Please see below follow up recommendations. Medical evaluation for secondary causes of low bone mineral density may be appropriate. FRAX is a World Health Organization validated fracture risk assessment tool that calculates a person's 10 year probability of a major osteoporosis related fracture and hip fracture. According to the National Osteoporosis Foundation guidelines, postmenopausal women and men age 50 or older with low bone mass and a 10 year probability of a major osteoporosis related fracture = or greater than 20% or a 10 year probability of a hip fracture = or greater than 3% should be considered for pharmacological treatment for the prevention of osteoporosis. For further information, including treatment recommendations, please refer to the 2019 ISCD Official Positions (http://www.iscd.org) and the NOF's Clinician's Guide to Prevention and Treatment of Osteoporosis (http://www.nof.org/professionals/clinical-guidelines) THIS IS AN ELECTRONICALLY VERIFIED FINAL REPORT 05/02/2025 12:15 AM - Electronically signed by Nate Andrea M.D. MF: [email or web address] Report ID: [id number] Reading Location: [place] [address] Procedure Note Nate Andrea MD - 05/02/2025 EXAM DESCRIPTION: DEXA AXIAL SKELETON BONE DENSITY 1 OR MORE SITES REASON FOR STUDY: 49 y/o year old F with given history of: low bonemass Engagement Liaison/Model: [employer] A (S/N [id number]) Facility LSC value of 0.022 for the AP spine, 0.027 for the femur, and0.023 for the forearm. CLINICAL INFORMATION: Current height: 62 inches Maximum height: 62 inches Weight: 205 pounds Risk factors: Asthma or emphysema COMPARISON: 12/31/2022 Dissimilar scan types or analysis methods precludes assessment for calculating a significant change. FINDINGS: AP LUMBAR SPINE L1-L4: Total BMD is 1.045 g/cm2 T-score is -1.0 LEFT HIP: Total BMD is 1.010 g/cm2 T-score is -0.1 Femoral neck BMD is 0.856 g/cm2 T-score is -0.7 FRAX: FRAX not reported due to T-scores of hip, femoral neck and/or spine beingat or above -1.0 (Normal). IMPRESSION: 1. Normal bone mass. REFERENCE: Bone mineral density: T-Score: Normal (T-score above or = -1.0) Low bone mass (T-score between -1.0 and -2.5) replaces thepreviously used term osteopenia Osteoporosis (T-score = or below -2.5) Z-Score: Within the expected range for age (Z-score above -2.0) Below the expected range for age (Z-score is -2.0 or below) Please see below follow up recommendations. Medical evaluation forsecondary causes of low bone mineral density may be appropriate. FRAX is a World Health Organization validated fracture risk assessmenttool that calculates a person's 10 year probability of a major osteoporosisrelated fracture and hip fracture. According to the National OsteoporosisFoundation guidelines, postmenopausal women and men age 50 or older with low bonemass and a 10 year probability of a major osteoporosis related fracture = or greater than 20% or a 10 year probability of a hip fracture = or greaterthan 3% should be considered for pharmacological treatment for the preventionof osteoporosis. For further information, including treatment recommendations, please referto the 2019 ISCD Official Positions (http://www.iscd.org) and the NOF's Clinician's Guide to Prevention and Treatment of Osteoporosis (http://www.nof.org/professionals/clinical-guidelines) THIS IS AN ELECTRONICALLY VERIFIED FINAL REPORT 05/02/2025 12:15 AM - Electronically signed by Nate Andrea M.D. MF: [email or web address] Report ID: [id number] Reading Location: [place] [address] June Bauman MD IM DXA PROCEDURES Final R esult * Hepatitis C antibody Blood (08/10/2024 12:40 PM JOB INTERVIEWER) Hep C Ab NON-REACTI VE NON-REACT [place] [facility] Comment: HCV antibody was non-reactive. There is no laboratory evidence of HCV infection. In most cases, no further action is required. However, if recent HCV exposure is suspected, a test for HCV RNA (test code 61229) is suggested. For additional information please refer to http://education.Telogis/faq/KAX97x3 (This link is being provided for informational/ educational purposes only.) Blood 08/10/2024 12:4 0 PM JOB INTERVIEWER 08/10/2024 12:43 PM JOB INTERVIEWER Narrative [facility] - 08/11/2024 9:07 AM JOB INTERVIEWER FASTING:UNKNOWN FASTING: UNKNOWN June Bauman MD LAB MICROBIOLOGY - GENERAL ORDERABLES Final Result Performing Organization Address City/State/[facility] Co de Phone Number GABRIELLA [facility] [address] [place] [address] * High Risk HPV DNA Detection with Genotyping (Molecular component) (04/13/2023 12:34 PM CDT) [facility] HPV HR 16 Not Detected Not Detected CHARMAINE Comment:Testing performed by : [facility], [address] [place] [address], [address] HPV HR 18 Not Detected Not Detected CHARMAINE Comment:Testing performed by : [facility], [address] [place]., [address] HPV HR Non 16/18 Not Detected Not Detected CHARMAINE Comment: Interpretive Data Nucleic acid amplification for [...] this test have been verified by the [facility] Molecular Infectious Disease laboratory. Correlate with separately reported cytology results, as applicable. Interpretive data last revised 23 Testing performed by: [facility], [address] [place]., [address] Endocervical 04/13/2023 12:3 4 PM CDT 04/15/2023 7:43 PM CDT [facility] CHARMAINE - 04/16/2023 2:30 AM CDT Clinical history and diagnosis->routine Number of vials->1 Testing type->Screening Last menstrual period (date if known)->03/29/2023 June Bauman MD LAB BODY FLUIDS AND STOOLS ORDERABLES Final Result Performing Organization Address City/State/[facility] Co de Phone Number CHARMAINE [address] [facility] Department [place] [address] from Last 3 Months or Most Recently Relevant to Health Maintenance Insurance [facility] [employer] Member Subscriber Plan / Payer (Ef fective 2014-Present) Name:Raine Limon Relation to Subscriber:Self Name:Raine Limon Payer ID:[id number] (NAIC) Group ID:[id number] Type:RotaryView Address: [facility] [id number] [place] [id number] [facility] [employer] Care Teams Combination Machine Tool Setter Relationship Specialty Start Date End Date Oleg Jeong MD PCP - General 01/07/19
--- OUTSIDE RECORDS SUMMARY | 2025-07-30 03:20 | XMS_ITS | Data Portability ---
Author Organization [facility] , [facility] Address [address] [place] [address] Assessment No assessment recorded. Plan of Treatment Reminders Order Date Submit Date Provider Last Modified By Organization Details Last Modified Time Details Appointments None recorded. Lab bacterial vaginosis + vaginitis panel, vaginal 2021 022 [id number] [facility], [address] [place] [address], [address], 3 03:39:02 unlisted lab - vaginitis plus STD panel 2020 021 [employer] [facility], [address] [place] [address], [address], 1 09:36:31 urinalysis , dipstick 2020 021 [email or web address] [facility], [address] [place], [address], 1 23:16:12 urinalysis complete, reflex culture 2020 021 [facility], [address] [place], [address], 02:31:53 Referral None recorded. Procedures None recorded. Surgeries None recorded. Imaging MAMMO, diagnostic , unilateral - Left breast pain, history of left breast cyst 2021 022 [facility], [address] [facility], [place], [address], 13:14:56 US, breast, unilateral - Left breast pain and cyst. 2021 022 [email or web address], [address] [facility], [place], [address], 13:02:44 MAMMO, screening, unilateral - right breast screening mammogram, left breast diagnostic [email or web address] [address] [facility], [place], [address], 13:14:56 Medication Orders nystatin-t riamcinolo ne 100,000 unit/g-0.1 % topical cream 2021 022 Not available 16:41:31 Diflucan 150 mg tablet 2020 021 [employer] Not available 18:19:14 metronidaz ole 500 mg tablet 2020 021 Not available 16:41:11 Patient TargetsNo targets recorded. Patient Instructions Encounter Date Encounter Id Patient Instructions Last Modified By Organization Details Last Modified Time 07/09/2021 [id number] vaginitis: care instructions [email or web address] Not available 07/09/2021 18:19:12 10/27/2021 [id number] vaginitis: care instructions Not available 10/27/2021 13:16:05 already had work-up for MMR return to discuss plan [email or web address] Not available 10/27/2021 14:15:05 11/03/2021 [id number] Patient declines EMB today, samples of Sylnd given today [email or web address] Not available 11/04/2021 00:18:56 Reason for Referral None Reported. Results Created Date Observation Date Name Description Value Unit Range Abnormal Flag Note LastModifiedBy Organization Detail LastModifiedTime 07/09/20 21 07/10/2021 VAGIN ITIS PLUS STD PANEL bacterial vaginosis BV POS negati ve positive Not Available [address], [address], 07/11/2021 09:36:31 07/09/20 21 07/10/2021 VAGIN ITIS PLUS STD PANEL autumn species C. spp neg negati ve Not Available [address], [address], 07/11/2021 09:36:31 07/09/20 21 07/10/2021 VAGIN ITIS PLUS STD PANEL autumn glabrata C. gla neg negati ve Not Available [address], [address], 07/11/2021 09:36:31 07/09/20 21 07/10/2021 VAGIN ITIS PLUS STD PANEL trichomonas vaginalis CV/TV TRICH neg negati ve Not Available [address], [address], 07/11/2021 09:36:31 07/09/20 21 07/10/2021 VAGIN ITIS PLUS STD PANEL chlamydia trachomatis CT neg negati ve If both Pap and Endoc ervic al swabs are colle cted, the Prese rvCyt Solut ion liqui d Pap speci men must be colle cted befor e the endoc ervic al swab speci men. Not Available [address], [address], 07/11/2021 09:36:31 07/09/20 21 07/10/2021 VAGIN ITIS PLUS STD PANEL neisseria gonorrhoeae GC neg negati ve If both Pap and Endoc ervic al swabs are colle cted, the Prese rvCyt Solut ion liqui d Pap speci men must be colle cted befor e the endoc ervic al swab speci men. Not Available [address], [address], 07/11/2021 09:36:31 07/09/20 21 07/09/2021 urina lysis , dipst ick Leukocytes Negati ve Not Available [address], [place], [address], 07/09/2021 18:06:32 07/09/20 21 07/09/2021 urina lysis , dipst ick Nitrite negati ve Not Available [address], [place], [address], 07/09/2021 18:06:32 07/09/20 21 07/09/2021 urina lysis , dipst ick Urobilinogen .2 Not Available [address], [place], [address], 07/09/2021 18:06:32 07/09/20 21 07/09/2021 urina lysis , dipst ick Protein Negati ve Not Available [address], [place], [address], 07/09/2021 18:06:32 07/09/20 21 07/09/2021 urina lysis , dipst ick pH 5.0 Not Available [address], [place], [address], 07/09/2021 18:06:32 07/09/20 21 07/09/2021 urina lysis , dipst ick Blood Negati ve Not Available [address], [place], [address], 07/09/2021 18:06:32 07/09/20 21 07/09/2021 urina lysis , dipst ick Specific [place] 1.000 Not Available [address], [place], [address], 07/09/2021 18:06:32 07/09/20 21 07/09/2021 urina lysis , dipst ick Ketone Negati ve Not Available [address], [place], [address], 07/09/2021 18:06:32 07/09/20 21 07/09/2021 urina lysis , dipst ick Bilirubin Negati ve Not Available [address], [place], [address], 07/09/2021 18:06:32 07/09/20 21 07/09/2021 urina lysis , dipst ick Glucose Negati ve Not Available [address], [place], [address], 07/09/2021 18:06:32 07/09/20 21 07/09/2021 urina lysis , dipst ick Appearance Clear Not Available [address], [place], [address], 07/09/2021 18:06:32 07/09/20 21 07/09/2021 urina lysis , dipst ick Color Pale Yellow Not Available [address], [place], [address], 07/09/2021 18:06:32 07/10/20 21 07/11/2021 URINA LYSIS , COMPL ETE W/REF ALESSIA TO CULTU RE color YELLOW yellow normal Not Available [address], [address], 07/11/2021 02:31:52 07/10/20 21 07/11/2021 URINA LYSIS , COMPL ETE W/REF ALESSIA TO CULTU RE appearance CLEAR clear normal Not Available [facility] [address] [place], [address], 07/11/2021 02:31:52 07/10/2007/11/2021 URINA LYSIS , COMPL ETE W/REF ALESSIA TO CULTU RE specific gravity 1.006 1.001- 1.035 normal Not Available [address], [address], 07/11/2021 02:31:52 07/10/20 21 07/11/2021 URINA LYSIS , COMPL ETE W/REF ALESSIA TO CULTU RE pH 6.0 5.0-8. 0 normal Not Available [address], [address], 07/11/2021 02:31:52 07/10/2007/11/2021 URINA LYSIS , COMPL ETE W/REF ALESSIA TO CULTU RE glucose NEGATI VE negati ve normal Not Available [address], [address], 07/11/2021 02:31:52 07/10/2007/11/2021 URINA LYSIS , COMPL ETE W/REF ALESSIA TO CULTU RE bilirubin NEGATI VE negati ve normal Not Available [address], [address], 07/11/2021 02:31:52 07/10/2007/11/2021 URINA LYSIS , COMPL ETE W/REF ALESSIA TO CULTU RE ketones NEGATI VE negati ve normal Not Available [address], [address], 07/11/2021 02:31:52 07/10/2007/11/2021 URINA LYSIS , COMPL ETE W/REF ALESSIA TO CULTU RE occult blood NEGATI VE negati ve normal Not Available [address], [address], 07/11/2021 02:31:52 07/10/20 21 07/11/2021 URINA LYSIS , COMPL ETE W/REF ALESSIA TO CULTU RE protein NEGATI VE negati ve normal Not Available [address], [address], 07/11/2021 02:31:52 07/10/20 21 07/11/2021 URINA LYSIS , COMPL ETE W/REF ALESSIA TO CULTU RE nitrite NEGATI VE negati ve normal Not Available [address], [address], 07/11/2021 02:31:52 07/10/20 21 07/11/2021 URINA LYSIS , COMPL ETE W/REF ALESSIA TO CULTU RE leukocyte esterase NEGATI VE negati ve normal Not Available [address], [address], 07/11/2021 02:31:52 07/10/20 21 07/11/2021 URINA LYSIS , COMPL ETE W/REF ALESSIA TO CULTU RE WBC NONE SEEN /hpf < or = 5 normal Not Available [address], [address], 07/11/2021 02:31:52 07/10/20 21 07/11/2021 URINA LYSIS , COMPL ETE W/REF ALESSIA TO CULTU RE RBC NONE SEEN /hpf < or = 2 normal Not Available [address], [address], 07/11/2021 02:31:52 07/10/20 21 07/11/2021 URINA LYSIS , COMPL ETE W/REF ALESSIA TO CULTU RE squamous epithelial cells NONE SEEN /hpf < or = 5 normal Not Available [address], [address], 07/11/2021 02:31:52 07/10/20 21 07/11/2021 URINA LYSIS , COMPL ETE W/REF ALESSIA TO CULTU RE bacteria NONE SEEN /hpf none seen normal Not Available [facility] [address] [address] [place], [address], 07/11/2021 02:31:52 07/10/20 21 07/11/2021 URINA LYSIS , COMPL ETE W/REF ALESSIA TO CULTU RE hyaline cast NONE SEEN /lpf none seen normal Not Available [address] [address] [place], [address], 07/11/2021 02:31:52 07/10/20 21 07/11/2021 REFLE XIVE URINE CULTU RE reflexive urine culture NO CULTU RE INDIC ATED Not Available [address] [address] [place], [address], 07/11/2021 02:31:53 10/28/19 22 10/29/2021 VAGIN ITIS PLUS STD PANEL bacterial vaginosis BV neg negati ve Not Available [address], [address], 10/29/2021 17:14:47 10/28/19 22 10/29/2021 VAGIN ITIS PLUS STD PANEL autumn species C. spp POS negati ve positive Not Available [address], [address], 10/29/2021 17:14:47 10/28/19 22 10/29/2021 VAGIN ITIS PLUS STD PANEL autumn glabrata C. gla neg negati ve Not Available [address], [address], 10/29/2021 17:14:47 10/28/19 22 10/29/2021 VAGIN ITIS PLUS STD PANEL trichomonas vaginalis CV/TV TRICH POS negati ve positive Not Available [address], [address], 10/29/2021 17:14:47 10/28/19 22 10/29/2021 VAGIN ITIS PLUS STD PANEL chlamydia trachomatis CT neg negati ve If both Pap and Endoc ervic al swabs are colle cted, the Prese rvCyt Solut ion liqui d Pap speci men must be colle cted befor e the endoc ervic al swab speci men. Not Available [address], [address], 10/29/2021 17:14:47 10/28/19 22 10/29/2021 VAGIN ITIS PLUS STD PANEL neisseria gonorrhoeae GC neg negati ve If both Pap and Endoc ervic al swabs are colle cted, the Prese rvCyt Solut ion liqui d Pap speci men must be colle cted befor e the endoc ervic al swab speci men. Not Available [address], [address], 10/29/2021 17:14:47 06/01/20 22 05/30/2022 MAMMO , diagn ostic , digit al, bilat eral No observ ation record ed. [email or web address] [address], [place], [address], 06/02/2022 10:57:05 Result Notes None recorded. Problems Name Problem SNOMED Code Status Onset Date Resolution Date Notes Provider Name and Address Organization Details Recorded Time Menorrha bernard 445262390 Active 2020 Excessiv e and frequent menstrua tion with regular cycle; Progress : Stable Added By: Kelly Botello Add to Current Problems : YES ProblemS tatus: Current Kelly Botello DO [address] [facility], [place], [address] , [facility] - [employer] [facility] 2 12:34:20 Abnormal uterine bleeding 33684430184 100 Active 2020 Other specifie d abnormal uterine and vaginal bleeding ; Progress : Stable Added By: Kelly Botello Add to Current Problems : YES ProblemS tatus: Current Not Available [employer] 2 09:20:02 Subacute and chronic vaginiti s 038821424 Active 2020 Subacute and chronic vaginiti s; Progress : Stable Added By: Kelly Botello Add to Current Problems : YES ProblemS tatus: Current [facility] Available [facility] 09:20:01 Syphilis test finding 638531768 Completed 202010/27/2021 Encounte r for screenin g for infectio ns with a predomin antly sexual mode of transmis fatmata; Progress : Stable Added By: Kelly Botello Add to Current Problems : YES ProblemS tatus: Current Ary rich, [employer] - [facility] 2 12:56:27 Sampling of vagina for Papanico laou smear Completed 202010/27/2021 Encounte r for gynecolo gical examinat ion (general ) (routine ) without abnormal findings ; Progress : Stable Added By: Kelly Botello Add to Current Problems : YES ProblemS tatus: Current Ary rich, [employer] - [facility] 2 12:56:10 Dysuria 83744288 Completed 202010/27/2021 Dysuria; Progress : Stable Added By: Bia Menard Add to Current Problems : YES ProblemS tatus: Current Ary rich, [employer] - [facility] 2 12:55:52 Screenin g mammogra phy Completed 202010/27/2021 Encounte r for screenin g mammogra m for malignan t neoplasm of breast; Progress : Stable Added By: Kelly Botello Add to Current Problems : YES ProblemS tatus: Current Ary rich, [employer] [facility] 2 12:56:17 Screenin g for malignan t neoplasm of cervix Completed 202010/27/2021 Encounte r for screenin g for malignan t neoplasm of cervix; Progress : Stable Added By: Kelly Botello Add to Current Problems : YES ProblemS tatus: Current Ary rich, [employer] [facility] 2 12:56:22 Problem Notes None recorded. Procedures Surgical History Date Name Laterality Status Provider Name and Address Organization Details Recorded Time 1 Most Recent Mammogram completed Bia Menard [employer] - [facility] 07/09/2021 17:46:05 Date of Last Pap Smear completed Petros Taveras [facility] 03/16/2022 16:40:18 C Section completed [facility] - [facility] IV 07/09/2021 17:46:34 Gall bladder completed [facility] - [facility] IV 07/09/2021 17:46:34 Imaging Results None recorded. Procedure Notes None recorded. Medical Equipment None Reported. Allergies Allergen ID Allergen Name Allergen Category Reaction Reaction Severity Criticality Documentation Date Start Date Code Code System Note Provider Name and Address Organization Details Recorded Time 110972 shellfish derived food,medi cation Not available Not available Not available 07/09/2021 Bia rich, [facility] 17:45:39 Medications Name Sig Start Date [...] completed Cytotec 200 mcg oral tablet RxNorm: [id number] Allow Substitu tion: True Refill Denied: No [...] beny HCL 150 mg oral capsule RxNorm: [id number] Allow Substitu tion: True Refill Denied: No [...] one furoate 27.5 mcg/actu ation Intranas al Bliss, Suspensi on RxNorm: [id number] Allow Substitu tion: False Refill Denied: No [...] Updated DateTime 10/27/2021 157.48 cm 38.2 kg/m2 86093.0 9 g 98 [degF] 140/88 mm[Hg] Ary Whalen [employer] 2 12:15:08 Date Recorded Body height Body mass index (BMI) Body weight Body temperature Systolic And Diastolic Provider Name and Address Organization Details Last Updated DateTime 11/03/2021 157.48 cm 38.4 kg/m2 68813.1 2 g 96.8 [degF] 130/80 mm[Hg] Ary Whalen [facility] 2 17:32:09 Date Recorded Body height Body mass index (BMI) Body weight Body temperature Systolic And Diastolic Provider Name and Address Organization Details Last Updated DateTime 03/16/2022 157.48 cm 37.6 kg/m2 31221.5 9 g 98.2 [degF] 134/82 mm[Hg] Petros Taveras [facility] 2 17:04:32 Date Recorded Body height Provider Name an d Address Organization Details Last Updated DateTime 07/09/2021 157.48 cm Bia Menard [employer] [facility] IV 07/09/2021 17:45:23 Social History Question Answer Notes LastModified by Courseloadat ion Details LastModified Time Tobacco Smoking Status Never Smoker Bia Menard [facility], [facility] [employer] [facility] 07/09/2021 17:46:25 Are You Blind Or Do You Have Difficulty Seeing? No [email or web address] Information not available 03/16/2022 Are You Deaf Or Do You Have Serious Difficulty Hearing? No [email or web address] Information not available 03/16/2022 How Many Children Do You Have? 2 [email or web address] Information not available 03/16/2022 What Is Your Relationship Status? Single Information not available 07/09/2021 Are You Sexually Active? No [email or web address] Information not available 03/16/2022 Sex: Unknown Functional Status Question Answer Note LastModified by Organizat ion Details LastModified Time Do you use any illicit or recreational drugs? No [email or web address] Information not available 03/16/2022 What is your [...] Diagnosis SNOMED-CT Code Diagnosis ICD10 Code Diagnosis IMO Codes Diagnosis Note [id number] Kelly Botello [address] [place] [address] 07/09/2021 16:42:23 07/22/2021 15:27:36 Vaginal discharge 265792735 N89.8 N76.0 Dysuria 06993330 R30.9 Screening for disorder 178401011 Z13.9 [id number] Kelly Botello DO [facility] [address] [place] [address] 10/27/2021 12:06:59 10/27/2021 15:28:19 Vaginal discharge 410679796 N89.8 N76.0 Screening for disorder 436659973 Z11.3 N89.9 Excessive and frequent menstruation 263979919 N92.0 Vaginitis 82993729 N76.0 [id number] Kelly Botello [address] [place] [address] 11/03/2021 16:55:55 11/04/2021 09:35:05 Disorder of menstruation 468528438 N92.6 [id number] Kelly Botello [address] [place] [address] 03/16/2022 16:23:28 03/17/2022 10:45:14 Gynecologic examination 34951475 Z01.419 Cyst of left breast 1073 944825 7153180 N60.02 Screening for malignant neoplasm of breast 786191521 Z12.39 Health Concerns Section Related Observation LastModified by Organization Detai ls LastModified Time None Recorded Concern Status LastModified by Organization Details LastModified Time None Recorded Advance Directives Directive None Recorded Payers Insurance Date Sequence Insurance Name Policy Number Policy Du Covered Member ID Du Member ID Guarantor Name 07/22/2021 1 [place] 112 Raine Braxton [id number] Raine Braxton 03/13/2022 1 [place] 112 Raine Braxton [id number] Raine Braxton Notes Date Note Type Note Provider Name and Address Organization Details Recorded Time 1 text/html Vaginal/Vulvar ProblemReported by PatientHPIFor location, patient reportsvagina. For onset/timing, patient reportsgradual. For duration, patient reportspresent for >1 monthandconstant. For quality, patient reportsitching,burning, andirritation. Patient with complaint of vaginal discharge present for several days, also having itching, burning, irritation Kelly Botello DO [address] [place] [address], [address], [facility] 07/09/2021 22:49:39 2 text/html Vaginal/Vulvar ProblemReported by PatientHPIFor location, patient reportsvagina. For duration, patient reportspresent for 1-7 days. For quality, patient reportsitchingandburning. For severity, patient reportssevere. Patient presents with a complaint of vaginal itching, burning for over a week, had intercourse with a new partner. Also complained of vaginal pain and dryness during intercourse. Kelly Botello DO [facility], [place], [address], [facility] [employer] IV 10/27/2021 14:15:42 2 text/html Abnormal BleedingReported by Patient Patient presents with a history of heavy irregular bleeding., symptoms present for a year now. Ultrasound 12/16/20 showed a 4.8x4.7x3.8cm fibroid, emc 6mm. last mammogram 04/29, FSH, LH, and estrogen levels normal, history of two prior cesareans. Needs EMB Kelly Botello DO [address] [facility], [place], [address], [facility] [facility] 11/04/2021 00:19:16 2 text/html Annual GYNReported by PatientGenitourinary symptomsFor menstrual cycle, patient reportsnormal menses. For urinary symptoms, patient reportsno hematuriaandno incontinence. For vulva, patient reportsno genital lesion. For vagina, patient reportsnormal vaginal discharge.Breast symptomsFor breast, patient reportsno breast pain,no breast lump, andno nipple discharge.Endocrine symptomsFor sexual complaints, patient reportsno sexual complaints,no pain during intercourse, andnormal libido. For menopausal symptoms, patient reportsno menopausal symptomsandnormal vaginal lubrication.Psychological symptomsFor psychological symptoms, patient reportsno depression,no anxiety, andno pmdd. Patient presents for annual exam without pap. Last pap 12/17/20. Normal, HPV negative pt states she has been having left breast pain from a cyst they can not remove ( Patient states that Dr Archer attempted to remove cyst.pt has no other concerns or questions today. Kelly Botello DO [address] [facility], [place], [address], [employer] [facility] 03/16/2022 21:16:49 OBGyn Episode No OBEpisode recorded.
[2025-07-30] MEDS: KETOROLAC 15 MG/ML VIAL (*BKC) IV PUSH (14:00)
[2025-07-30] MEDS: LACTATED RINGERS 1,000 ML 30 ML IV CONT (14:00)
[2025-07-30] MEDS: ACETAMINOPHEN 500 MG TABLET 1000 MG PO (14:00)
--- NOTE | 2025-07-30 14:41 | WPDANESEPPF ---
Anes - Initial Pre Proc Eval Procedure: Operation Date: 07/30/25 15:00 Proposed Procedures p Left Knee Arthroscopy, Partial Lateral Meniscectomy - El Shoemaker MD Date/Time: 07/30/25 14:41 Surgeon: El Shoemaker MD Pre Op Diagnosis: Left knee bucket handle tear of lateral meniscus Patient Data Age: 49 Gender: F Height: 1.57 m Weight: 96.4 kg Last Vital Signs Temp 97.3 F L 07/30/25 14:00 Pulse 94 07/30/25 14:00 Resp 16 07/30/25 14:00 BP 131/74 07/30/25 14:00 Pulse Ox 98 07/30/25 14:00 O2 Del Method Room Air 07/30/25 14:00 Allergies Allergy/AdvReac Type Severity Reaction Status Date / Time shellfish derived Allergy Mild Unknown Verified 07/30/25 14:24 Home Medications ?Medication ?Instructions ?Recorded ?Confirmed ?Type albuterol sulfate 90 mcg/actuation 1 inh inhalation Q4H 02/21/25 07/30/25 History aerosol inhaler (Ventolin HFA) amlodipine 5 mg tablet 5 mg PO DAILY 07/20/25 07/30/25 History metoprolol succinate 25 mg 12.5 mg PO DAILY 07/20/25 07/30/25 History tablet,extended release 24 hr ergocalciferol (vitamin D2) 1,250 1,250 mcg PO WEEKLY 07/26/25 07/30/25 History mcg (50,000 unit) capsule (Vitamin D2) latanoprost 0.005 % eye drops 1 drp EACH EYE HS 07/26/25 07/30/25 History aspirin 81 mg tablet,delayed 81 mg PO BID 14 days #28 tabs 07/30/25 Rx release hydrocodone 5 mg-acetaminophen 325 1 - 2 tablet PO Q4-6H PRN pain 7 07/30/25 Rx mg tablet days #30 tabs Patient hx anesthesia problems: none Family hx anesthesia problems: none Results Review: All pre-operative results and documents have been reviewed as part of the pre-operative evaluation. [facility] Family History Family History Other Family history of arthritis Social History Social History (Reviewed 07/30/25 @ 14:41 by KEIRA Soni Smoking status: Never smoker Alcohol intake: current Lack of Transportation: No Lack of Food: Never True Current Housing: I Have Housing Concerned About Future Housing: No Difficulty Paying Gas/Electric Bills: No Difficulty Paying for Meds: No Currently Unemployed: No Education: High School Diploma/GED Difficulty w/ Childcare or Family Care: No Anes - Eval Final PreProcedure Day of Procedure 07/30/25 14:41 Patient weight: obese Lungs: normal air movement Airway: Mallampati scale class II Neurological: alert and oriented Last oral intake: >/= 8 hours ASA classification: III Emergent: no Anesthetic plan: proceed Anesthesia type and monitoring: general LMA and standard monitoring Results Review: All pre-operative results and documents have been reviewed as part of the pre-operative evaluation. HTN, asthma w good control, sinus infection 2 weeks ago, treated w abx, now resolved. LOLY on CPAP. Informed Consent: The patient's anesthetic plan and its attendant risks and benefits were discussed with the patient/family/POA. Questions were solicited and answers provided to the satisfaction of the patient/family/POA.
--- NOTE | 2025-07-30 14:42 | WPDHPUPDATE1 ---
History and Physical Update Update Date/Time: 07/30/25 14:42 History and Physical has been reviewed, including an updated exam of the patient. There are NO changes in the patient's condition. Risks, benefits, and alternatives have been discussed and questions answered. Patient agrees to proceed with procedure.
[2025-07-30] MEDS: ceFAZolin 2 GM in SODIUM CHLORIDE 0.9% IV 50 ML 100 ML IVPB (15:00)
[2025-07-30] MEDS: BUPIVACAINE/EPINEPHRINE 0.5% 50 ML VIAL 30 ML INFILTRATE (15:13)
--- NOTE | 2025-07-30 15:57 | W.PM.PROC2 ---
Procedure Note - Detailed Date of Procedure 07/30/25 Pre-op Diagnosis Left knee bucket handle tear of lateral meniscus Post-op Diagnosis Other (Left knee 1. Lateral meniscus tear 2. Medial meniscus tear) Procedure Performed Arthroscopic partial lateral and mendial meniscectomies, left knee. Surgeon El Shoemaker MD Anesthesia General Findings Complex tears of the lateral and medial meniscus. 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 Lateral femur chondromalacia grade 4, lateral tibia grade 3. Patellar grade 2, trochlea grade 3. Description of Procedure The patient was identified and the surgical site confirmed and signed in the preoperative holding area. Antibiotics were started per protocol, and the patient was brought to the operative room and transferred to the OR table. A general anesthetic was administered. Supine position with the operative lower extremity position in the leg [place] after placement of a well padded tourniquet. The leg support was lowered and the contralateral limb was supported with a soft bolster. The knee was prepped and draped in the usual sterile fashion. A time-out was performed. The portal sites were marked and infiltrated with 0.5% Marcaine 20 mL. The limb was exsanguinated and the tourniquet inflated to 300 mL Hg. Standard inferolateral and inferomedial portals were established. Inflow was obtained with the saline pump. The camera was introduced. Diagnostic inspection of the joint was accomplished. The menisci were debrided with the arthroscopic shaver and punches until stable. The radiofrequency probe was also used for further d?bridement. Chondroplasty was performed on the medial and lateral femur as well as the patellofemoral joint. The arthroscopic instruments were removed. The tourniquet released and wounds closed with subcutaneous 4-0 Monocryl absorbable suture. Steri strips and a sterile dressing were applied. A light elastic wrap was placed. The patient was extubated and brought to the recovery room in stable condition. Estimated Blood Loss 5 Drains No Complications No immediate complications Condition Stable Disposition PACU [facility] Billing Surgery - Charge Forward: Surgery Billing
[2025-07-30] MEDS: oxyCODONE HCL (*CRX) 5 MG TAB IR PO (16:42)
== END 2025-07-30 17:30 | disposition home or self-care (01) ==
PROVIDERS: Visit Provider Orthopaedic Surgery
PROC: (CPT 29870; principal; 2025-07-30 15:00)
DX: S83.272A Complex tear of lateral meniscus, current injury, left knee, initial encounter (principal); S83.232A Complex tear of medial meniscus, current injury, left knee, initial encounter; M22.42 Chondromalacia patellae, left knee; X50.0XXA Overexertion from strenuous movement or load, initial encounter; Y93.41 Activity, dancing; E66.9 Obesity, unspecified; Z68.38 Body mass index [BMI] 38.0-38.9, adult
CPT/HCPCS: 29880; J0690; A9270; J1100; J1885; J2003; J2250; J2405; J2704; J3010; J7120